=== PATIENT | male | born 1975 | race African-American/Black ===

== ENCOUNTER 2017-11-23 20:32 | Inpatient (IN) | payer MEDICARE, MEDICAID ==
[~2017-11-23] VITALS: Ht 170.2 cm; Wt 75.3 kg
[~2017-11-23 20:32] MED LIST: RIVA10TA PO
[2017-11-23] MEDS ORDERED: HYDROCODONE/ACETAMINOPHEN 5/325MG TABLET PO STA (21:02)
[2017-11-23] MEDS ORDERED: VANCOMYCIN 1 G PREMIX 200 ML IV ONE (21:15)
[2017-11-23] MEDS ORDERED: PIPERACILLIN/TAZ 3.375G PREMIX 50 ML IV ONE (21:15)
[2017-11-23] MEDS ORDERED: SODIUM CHLORIDE 0.9% 1000ML BAG (SEPSIS BOLUS) IV ONE (21:15)
[2017-11-23 22:49] LABS: BASOPHILS % 0.4 % (0.0-2.0); EOSINOPHILS % 2.1 % (0.0-5.0); HEMATOCRIT. 33.8 % (42.0-52.0); LYMPHOCYTES % 14.3 % (20.0-50.0); MEAN CORPUSCULAR HEMOGLOBIN 25.3 pg (28.0-32.0); MEAN CORPUSCULAR VOLUME 77.8 fL (80.0-94.0); MEAN PLATELET VOLUME 6.4 fl (7.4-10.4); MONOCYTES % 8.3 % (2.0-8.0); NEUTROPHILS % 74.9 % (40.0-76.0); PLATELET 589 x1000/uL (130-400); RED BLOOD CELL COUNT 4.34 mill/uL (4.7-6.1); RED CELL DISTRIBUTION WIDTH 19.5 % (11.6-14.6)
[2017-11-23 22:55] LABS: CHLORIDE 107 mEq/L (98-107)
[2017-11-23 22:57] LABS: CLARITY URINE CLEAR (CLEAR); COLOR URINE YELLOW (YELLOW); KETONES URINE NEGATIVE (NEGATIVE); LEUKOCYTE ESTERASE URINE 2+ (NEGATIVE); NITRITE URINE NEGATIVE (NEGATIVE); OCCULT BLOOD URINE 2+ (NEGATIVE); PH URINE 6.5 (4.5-8.0); PROTEIN URINE NEGATIVE (NEGATIVE); SPECIFIC GRAVITY URINE 1.012 (1.005-1.030); UROBILINOGEN URINE 0.2 E.U./dL (0.2-1.0)
[2017-11-23 22:58] LABS: INR 1.1; PROTHROMBIN TIME 10.9 sec (9.4-11.6)
[2017-11-23 22:59] LABS: ETHANOL BLOOD < 10 mg/dL
[2017-11-23 23:06] LABS: *BARBITURATES SCREEN URINE NEGATIVE (NEGATIVE); *BENZODIAZEPINES SCREEN URINE NEGATIVE (NEGATIVE)
[2017-11-23 23:07] LABS: *AMPHETAMINES SCREEN URINE NEGATIVE (NEGATIVE); *COCAINE SCREEN URINE NEGATIVE (NEGATIVE); CANNABINOID URINE SCREEN PRESUMTIVE POSITIVE (NEGATIVE); METHADONE URINE SCREEN NEGATIVE (NEGATIVE); OPIATES URINE SCREEN NEGATIVE (NEGATIVE); PHENCYCLIDINE URINE SCREEN NEGATIVE (NEGATIVE)
[2017-11-23] MEDS ORDERED: DEXT 5%/0.45% NACL 1000ML 1,000 ML IV SCH (23:25)
[2017-11-23] MEDS ORDERED: ONDANSETRON HCL 4MG/2ML VIAL IV PRN (23:30)
[2017-11-23] MEDS ORDERED: LORAZEPAM 2MG/ML CPJ IV PRN (23:30)
[2017-11-23] MEDS ORDERED: ACETAMINOPHEN 650MG/20.3ML UDC GT PRN (23:30)
[2017-11-23] MEDS ORDERED: CLONIDINE 0.1MG TABLET PO PRN (23:30)
[2017-11-24] VITALS: BP 115/70
[2017-11-24] MEDS: MORPHINE SULFATE 4 MG/ML CPJ (NOT FOR IM USE) IV PRN ×6 (00:29→21:56)
[2017-11-24] MEDS ORDERED: ONDANSETRON 4MG ODT PO PRN (00:30)
[2017-11-24 04:00] VITALS: BP 112/68
[2017-11-24 08:00] VITALS: BP 120/67
[2017-11-24] MEDS: DIPHENHYDRAMINE 50MG/ML VIAL IV PRN ×3 (08:12→21:18)
[2017-11-24] MEDS: VANCOMYCIN 1 G PREMIX 200 ML IV SCH ×4 (08:12→23:54)
[2017-11-24 08:52] LABS: CHLORIDE 106 mEq/L (98-107)
[2017-11-24 08:58] LABS: PHOSPHORUS 2.9 mg/dL (2.5-4.9)
[2017-11-24] MEDS ORDERED: ENOXAPARIN 40MG/0.4ML SYR SUBCUT SCH (09:00)
[2017-11-24 09:01] LABS: BASOPHILS % 0.4 % (0.0-2.0); EOSINOPHILS % 3.1 % (0.0-5.0); HEMATOCRIT. 33.7 % (42.0-52.0); HEMOGLOBIN. 11.1 g/dL (14.0-18.0); LYMPHOCYTES % 22.4 % (20.0-50.0); MEAN CORPUSCULAR HEMOGLOBIN 25.6 pg (28.0-32.0); MEAN PLATELET VOLUME 6.3 fl (7.4-10.4); MONOCYTES % 9.5 % (2.0-8.0); NEUTROPHILS % 64.6 % (40.0-76.0); PLATELET 608 x1000/uL (130-400); RED BLOOD CELL COUNT 4.32 mill/uL (4.7-6.1); RED CELL DISTRIBUTION WIDTH 19.4 % (11.6-14.6)
[2017-11-24 12:00] VITALS: BP 120/86
[2017-11-24 16:00] VITALS: BP 115/67
[2017-11-24] MEDS ORDERED: HYDROCODONE/ACETAMINOPHEN 5/325MG TABLET PO PRN (16:30)
[2017-11-24] MEDS ORDERED: RIVAROXABAN 20 MG TABLET PO SCH (17:00)
[2017-11-24 20:00] VITALS: BP 114/84
[2017-11-24] MEDS: RISPERIDONE 1MG TABLET PO SCH ×2 (21:00→21:18)
[2017-11-25] VITALS: BP 150/98
[2017-11-25] MEDS: MORPHINE SULFATE 4 MG/ML CPJ (NOT FOR IM USE) IV PRN ×3 (01:56→09:56)
[2017-11-25] MEDS: DIPHENHYDRAMINE 50MG/ML VIAL IV PRN (03:53)
[2017-11-25 04:00] VITALS: BP 142/76
[2017-11-25 07:43] VITALS: BP 109/73
[2017-11-25] MEDS: VANCOMYCIN 1 G PREMIX 200 ML IV SCH (08:00)
[2017-11-25] MEDS: RISPERIDONE 1MG TABLET PO SCH (08:41)
[2017-11-25 10:28] LABS: CHLORIDE 103 mEq/L (98-107)
[2017-11-25 10:37] LABS: VANCOMYCIN TROUGH 7.3 ug/mL (5.0-10.0)
[2017-11-25] MEDS ORDERED: CEFEPIME 1,000 MG in DEXTROSE 5% WATER 50 ML IV SCH (11:00)
[2017-11-25 11:21] VITALS: BP 110/76
== END 2017-11-25 11:35 | disposition home or self-care (01) | DRG 570 ==
LOC: ER 20:55 → 6EST 22:06 → ENRESERV 22:41
PROVIDERS: ADMIT Internal Medicine Nephrology; ATTEND Internal Medicine Nephrology
PROC: 0JBR0ZZ Excision of Left Foot Subcutaneous Tissue and Fascia, Open Approach (ICD-10-PCS; principal; 2017-11-24)
DX: L97.429 Non-pressure chronic ulcer of left heel and midfoot with unspecified severity (principal); E43 Unspecified severe protein-calorie malnutrition; G82.20 Paraplegia, unspecified; N39.0 Urinary tract infection, site not specified; L03.116 Cellulitis of left lower limb; L97.419 Non-pressure chronic ulcer of right heel and midfoot with unspecified severity; L89.154 Pressure ulcer of sacral region, stage 4; F12.90 Cannabis use, unspecified, uncomplicated; F17.210 Nicotine dependence, cigarettes, uncomplicated; G89.29 Other chronic pain; D63.8 Anemia in other chronic diseases classified elsewhere; Z60.2 Problems related to living alone; Z59.0 Homelessness; Z79.01 Long term (current) use of anticoagulants; Z91.19 Patient's noncompliance with other medical treatment and regimen; Z86.718 Personal history of other venous thrombosis and embolism; Z93.3 Colostomy status; W34.00XS Accidental discharge from unspecified firearms or gun, sequela; Z88.8 Allergy status to other drugs, medicaments and biological substances; Z79.899 Other long term (current) drug therapy; Z68.26 Body mass index [BMI] 26.0-26.9, adult
CPT/HCPCS: 36415; 80048; 80053; 80202; 80305; 81003; 82962; 83605; 83735; 84100; 85025; 85610; 87040; 87070; 87086; 87186; 87205; 93971; 96365; 96366; 96368; 99285; C1893; G0482; J0692; J1200; J1650; J2270; J2543; J3370; J7030; J7060; Q0162

== ENCOUNTER 2017-12-14 20:02 | Emergency (ER) | payer MEDICARE, MEDICAID ==
[~2017-12-14] VITALS: Ht 170.2 cm; Wt 69.0 kg
[2017-12-14] MEDS ORDERED: MORPHINE SULFATE 4 MG/ML CPJ (NOT FOR IM USE) IV STA (21:40)
[2017-12-14] MEDS ORDERED: ONDANSETRON HCL 4MG/2ML VIAL IV STA (21:40)
[2017-12-14] MEDS ORDERED: SODIUM CHLORIDE 0.9% 1000ML BAG (SEPSIS BOLUS) IV ONE (21:45)
[2017-12-14] MEDS ORDERED: VANCOMYCIN 1 G PREMIX 200 ML IV ONE (21:45)
[2017-12-14] MEDS ORDERED: PIPERACILLIN/TAZ 3.375G PREMIX 50 ML IV ONE (21:45)
[2017-12-15 00:45] LABS: BASOPHILS % 0.5 % (0.0-2.0); HEMATOCRIT. 34.2 % (42.0-52.0); LYMPHOCYTES % 19.5 % (20.0-50.0); MEAN CORPUSCULAR HEMOGLOBIN 25.5 pg (28.0-32.0); MEAN CORPUSCULAR VOLUME 78.9 fL (80.0-94.0); MEAN PLATELET VOLUME 6.8 fl (7.4-10.4); PLATELET 501 x1000/uL (130-400); RED BLOOD CELL COUNT 4.33 mill/uL (4.7-6.1); RED CELL DISTRIBUTION WIDTH 18.8 % (11.6-14.6)
[2017-12-15 01:08] LABS: CHLORIDE 110 mEq/L (98-107)
[2017-12-15 01:22] LABS: INR 1.1; PROTHROMBIN TIME 10.8 sec (9.1-11.1)
[2017-12-15] MEDS ORDERED: SODIUM CHLORIDE 0.9% 1,000 ML IV SCH (02:08)
[2017-12-15] MEDS ORDERED: HYDROCODONE/ACETAMINOPHEN 5/325MG TABLET PO ONE (03:00)
[2017-12-15 07:31] LABS: CLARITY URINE CLEAR (CLEAR); COLOR URINE YELLOW (YELLOW); KETONES URINE NEGATIVE (NEGATIVE); LEUKOCYTE ESTERASE URINE 1+ (NEGATIVE); NITRITE URINE NEGATIVE (NEGATIVE); OCCULT BLOOD URINE NEGATIVE (NEGATIVE); PH URINE 7.5 (4.5-8.0); PROTEIN URINE NEGATIVE (NEGATIVE); SPECIFIC GRAVITY URINE 1.015 (1.005-1.030); UROBILINOGEN URINE 0.2 E.U./dL (0.2-1.0)
[2017-12-15 08:00] VITALS: BP 108/62
[2017-12-15] MEDS ORDERED: LORAZEPAM 2MG/ML CPJ IV PRN (08:15)
== END 2017-12-15 10:10 | disposition left against medical advice (07) ==
LOC: ER 20:46 → EDBEDREQDT 12-15 02:32 → EDBEDREQ 12-15 02:32 → EDBEDREQSVC 12-15 02:32 → EDBEDREQTM 12-15 02:32 → ER 12-15 10:10 → CANBEDREQ 12-15 15:52
DX: L03.116 Cellulitis of left lower limb (principal); G82.20 Paraplegia, unspecified; R00.0 Tachycardia, unspecified; M86.9 Osteomyelitis, unspecified; Z86.718 Personal history of other venous thrombosis and embolism; Z79.01 Long term (current) use of anticoagulants; Z99.3 Dependence on wheelchair; Z93.3 Colostomy status; Z88.6 Allergy status to analgesic agent; T14.8XXS Other injury of unspecified body region, sequela; X93.XXXS Assault by handgun discharge, sequela
CPT/HCPCS: 36415; 71045; 80053; 81003; 83605; 83880; 84484; 85025; 85610; 87040; 87086; 93005; 93970; 96365; 96366; 96368; 96375; 99285; J2270; J2405; J2543; J3370; J7030

== ENCOUNTER 2017-12-15 18:27 | Emergency (ER) | payer MEDICARE, MEDICAID ==
[~2017-12-15] VITALS: Ht 167.6 cm; Wt 62.0 kg
[2017-12-15 18:40] VITALS: BP 0/0
== END 2017-12-15 18:59 | disposition left against medical advice (07) ==
LOC: ER 18:27
DX: Z53.21 Procedure and treatment not carried out due to patient leaving prior to being seen by health care provider (principal)

== ENCOUNTER 2018-02-01 02:31 | Emergency (ER) | payer MEDICARE, MEDICAID ==
[~2018-02-01] VITALS: Ht 157.5 cm; Wt 57.0 kg
[2018-02-01 02:33] VITALS: BP 118/78
== END 2018-02-01 07:40 | disposition left against medical advice (07) ==
LOC: ER 03:39
DX: M79.662 Pain in left lower leg (principal); Z53.21 Procedure and treatment not carried out due to patient leaving prior to being seen by health care provider

== ENCOUNTER 2018-02-01 09:11 | Inpatient (IN) | payer MEDICARE, MEDICAID ==
[~2018-02-01] VITALS: Ht 198.1 cm; Wt 76.2 kg
[2018-02-01] MEDS ORDERED: ONDANSETRON HCL 4MG/2ML INJ IV STA ×2 (11:07→16:54)
[2018-02-01] MEDS ORDERED: MORPHINE SULFATE 4 MG/ML CPJ (NOT FOR IM USE) IV STA ×2 (11:07→16:54)
[2018-02-01] MEDS ORDERED: PIPERACILLIN/TAZ 3.375G PREMIX 50 ML IV ONE (11:15)
[2018-02-01] MEDS ORDERED: SODIUM CHLORIDE 0.9% 1000ML BAG (SEPSIS BOLUS) IV ONE (11:15)
[2018-02-01] MEDS ORDERED: VANCOMYCIN 1 G PREMIX 200 ML IV ONE (11:15)
[2018-02-01] MEDS ORDERED: DIPHENHYDRAMINE 50MG/ML VIAL IV ONE ×3 (12:45→17:00)
[2018-02-01 13:04] LABS: CHLORIDE 110 mEq/L (98-107)
[2018-02-01 13:07] LABS: INR 1.1; PARTIAL THROMBOPLASTIN TIME 33.5 sec (23.4-31.0); PROTHROMBIN TIME 10.9 sec (9.1-11.1)
[2018-02-01 13:23] LABS: BASOPHILS % 0.5 % (0.0-2.0); EOSINOPHILS % 3.4 % (0.0-5.0); HEMOGLOBIN. 11.5 g/dL (14.0-18.0); LYMPHOCYTES % 11.7 % (20.0-50.0); MEAN CORPUSCULAR VOLUME 75.3 fL (80.0-94.0); MEAN PLATELET VOLUME 7.2 fl (7.4-10.4); MONOCYTES % 9.4 % (2.0-8.0); PLATELET 493 x1000/uL (130-400); RED BLOOD CELL COUNT 4.78 mill/uL (4.7-6.1); RED CELL DISTRIBUTION WIDTH 18.1 % (11.6-14.6)
[2018-02-01] MEDS ORDERED: ONDANSETRON HCL 4MG/2ML INJ IV ONE (13:45)
[2018-02-01] MEDS ORDERED: MORPHINE SULFATE 4 MG/ML CPJ (NOT FOR IM USE) IV ONE (13:45)
[2018-02-01] MEDS ORDERED: GUAIFENESIN 200MG/10ML SUGAR FREE UDC PO PRN (17:15)
[2018-02-01] MEDS ORDERED: ENOXAPARIN 80MG/0.8ML SYR SUBCUT ONE (17:15)
[2018-02-01] MEDS ORDERED: DOCUSATE SODIUM 100MG CAPSULE PO PRN (17:15)
[2018-02-01] MEDS ORDERED: KETOROLAC 15MG/ML VIAL IV PRN (17:15)
[2018-02-01] MEDS ORDERED: LORAZEPAM 2MG/ML CPJ IV ONE (17:15)
[2018-02-01] MEDS ORDERED: PIPERACILLIN/TAZ 3.375G PREMIX 50 ML IV SCH (17:15)
[2018-02-01] MEDS ORDERED: LORAZEPAM 0.5MG TABLET PO PRN (17:15)
[2018-02-01] MEDS ORDERED: VANCOMYCIN 1 G PREMIX 200 ML IV SCH (17:15)
[2018-02-01] MEDS ORDERED: IPRATROPIUM/ALBUTEROL 0.5-3(2.5)MG/3ML NEB INH PRN (17:15)
[2018-02-01] MEDS ORDERED: NA PHOS,M-B/NA PHOS,DI-BA ENEMA 118ML PR PRN (17:15)
[2018-02-01] MEDS ORDERED: ACETAMINOPHEN 325MG TABLET PO PRN (17:15)
[2018-02-01 18:22] LABS: ETHANOL BLOOD < 10 mg/dL
[2018-02-01 18:25] LABS: LDL CHOLESTEROL 51 mg/dL (5-100)
[2018-02-01 18:27] LABS: HDL CHOLESTEROL 46 mg/dL (40-59)
[2018-02-01] MEDS ORDERED: NITROGLYCERIN 0.4MG TABLET SL SL PRN (20:00)
[2018-02-01] MEDS ORDERED: TRAMADOL 50MG TABLET PO PRN (23:48)
[2018-02-01] MEDS ORDERED: ZOLPIDEM TARTRATE 5MG TABLET PO PRN (23:49)
[2018-02-01] MEDS ORDERED: ONDANSETRON HCL 4MG/2ML INJ IV PRN (23:50)
[2018-02-02] MEDS ORDERED: MVI, ADULT NO.1 10 ML, FOLIC ACID 1 MG, THIAMINE HCL 100 MG in SODIUM CHLORIDE 0.9% 1,0... IV SCH ×4
[2018-02-02] MEDS ORDERED: VANCOMYCIN 1 G PREMIX 200 ML IV SCH (01:00)
[2018-02-02] MEDS ORDERED: PIPERACILLIN/TAZ 3.375G PREMIX 50 ML IV SCH (02:00)
[2018-02-02 03:00] VITALS: BP 126/73
[2018-02-02] MEDS: MORPHINE SULFATE 4 MG/ML CPJ (NOT FOR IM USE) IV PRN ×2 (03:35→08:43)
[2018-02-02 03:41] VITALS: BP 126/73
[2018-02-02 08:00] VITALS: BP 128/76
[2018-02-02 08:43] VITALS: BP 126/80
[2018-02-02] MEDS ORDERED: ASCORBIC ACID 500 MG TABLET PO SCH (09:00)
[2018-02-02] MEDS ORDERED: ZINC SULFATE 220 MG ( 50 ) CAPSULE PO SCH (09:00)
[2018-02-02] MEDS ORDERED: FAMOTIDINE 20MG TABLET PO SCH (09:00)
[2018-02-02] MEDS ORDERED: ENOXAPARIN 40MG/0.4ML SYR SUBCUT SCH (09:00)
== END 2018-02-02 10:14 | disposition left against medical advice (07) | DRG 871 ==
LOC: ER 09:11 → 8WST 17:10 → ENRESERV 21:59
PROVIDERS: ADMIT Internal Medicine; ATTEND Internal Medicine
DX: A41.9 Sepsis, unspecified organism (principal); E43 Unspecified severe protein-calorie malnutrition; G82.20 Paraplegia, unspecified; N13.2 Hydronephrosis with renal and ureteral calculous obstruction; M86.8X6 Other osteomyelitis, lower leg; Z68.1 Body mass index [BMI] 19.9 or less, adult; D63.8 Anemia in other chronic diseases classified elsewhere; F12.90 Cannabis use, unspecified, uncomplicated; F17.210 Nicotine dependence, cigarettes, uncomplicated; Z90.49 Acquired absence of other specified parts of digestive tract; Z99.3 Dependence on wheelchair
CPT/HCPCS: 36415; 71045; 73620; 74176; 80053; 80061; 83036; 83605; 84484; 85025; 85610; 85730; 86850; 86900; 87040; 93005; 93970; 96365; 96366; 96375; 99285; G0482; J1200; J1650; J2060; J2270; J2405; J2543; J3370; J3411; J3490; J7030; J7040

== ENCOUNTER 2018-02-03 04:48 | Inpatient (IN) | payer MEDICARE, MEDICAID ==
[~2018-02-03] VITALS: Ht 152.4 cm; Wt 68.0 kg
[2018-02-03] MEDS ORDERED: MORPHINE SULFATE 4 MG/ML CPJ (NOT FOR IM USE) IV STA (06:41)
[2018-02-03] MEDS ORDERED: SODIUM CHLORIDE 0.9% 1,000 ML IV ONE (06:41)
[2018-02-03] MEDS ORDERED: ONDANSETRON HCL 4MG/2ML INJ IV STA (06:41)
[2018-02-03 07:25] LABS: BASOPHILS % 0.3 % (0.0-2.0); EOSINOPHILS % 4.4 % (0.0-5.0); HEMATOCRIT. 33.4 % (42.0-52.0); HEMOGLOBIN. 10.6 g/dL (14.0-18.0); MEAN CORPUSCULAR HEMOGLOBIN 23.8 pg (28.0-32.0); MEAN CORPUSCULAR VOLUME 75.1 fL (80.0-94.0); MEAN PLATELET VOLUME 6.4 fl (7.4-10.4); MONOCYTES % 7.8 % (2.0-8.0); NEUTROPHILS % 72.5 % (40.0-76.0); PLATELET 536 x1000/uL (130-400); RED BLOOD CELL COUNT 4.45 mill/uL (4.7-6.1)
[2018-02-03 07:30] LABS: CHLORIDE 109 mEq/L (98-107)
[2018-02-03 07:31] LABS: INR 1.1; PROTHROMBIN TIME 10.7 sec (9.1-11.1)
[2018-02-03 08:00] VITALS: BP 112/71
[2018-02-03 09:55] VITALS: BP 141/90
[2018-02-03] MEDS ORDERED: HYDROCODONE/ACETAMINOPHEN 5/325MG TABLET PO PRN (11:00)
[2018-02-03] MEDS ORDERED: CLONIDINE 0.1MG TABLET PO PRN (11:00)
[2018-02-03] MEDS: HYDROMORPHONE HCL/PF 2MG/ML CPJ IV PRN ×3 (11:11→19:48)
[2018-02-03] MEDS: ENOXAPARIN 40MG/0.4ML SYR SUBCUT SCH (12:00)
[2018-02-03] MEDS: AMLODIPINE 10MG TABLET PO SCH (12:00)
[2018-02-03] MEDS ORDERED: VANCOMYCIN 1250MG in DEXTROSE 5% WATER 250ML IV SCH (13:30)
[2018-02-03] MEDS: PIPERACILLIN/TAZ 3.375G PREMIX 50 ML IV SCH ×3 (14:57→22:00)
[2018-02-03] MEDS: ONDANSETRON HCL 4MG/2ML INJ IV PRN ×2 (15:04→19:48)
[2018-02-03] MEDS: DIPHENHYDRAMINE 50MG/ML VIAL IV PRN ×2 (15:25→19:54)
[2018-02-03] MEDS: LORAZEPAM 2MG/ML CPJ IV PRN (15:25)
[2018-02-03 20:00] VITALS: BP 120/76
[2018-02-04] VITALS: BP 106/57
[2018-02-04] MEDS: DIPHENHYDRAMINE 50MG/ML VIAL IV PRN ×2 (01:05→08:52)
[2018-02-04 01:14] VITALS: BP 106/57
[2018-02-04] MEDS: LORAZEPAM 2MG/ML CPJ IV PRN (01:14)
[2018-02-04] MEDS: PIPERACILLIN/TAZ 3.375G PREMIX 50 ML IV SCH (06:00)
[2018-02-04] MEDS: AMLODIPINE 10MG TABLET PO SCH (08:44)
[2018-02-04] MEDS: ENOXAPARIN 40MG/0.4ML SYR SUBCUT SCH (08:52)
[2018-02-04] MEDS: VANCOMYCIN 1 G PREMIX 200 ML IV SCH ×2 (08:52)
== END 2018-02-04 11:49 | disposition left against medical advice (07) | DRG 539 ==
LOC: ER 04:48 → 6EST 07:56 → EDBEDREQTM 08:05 → EDBEDREQ 08:05 → ENRESERV 08:15
PROVIDERS: ADMIT Hospitalist; ATTEND Hospitalist
DX: M86.8X6 Other osteomyelitis, lower leg (principal); E43 Unspecified severe protein-calorie malnutrition; F17.210 Nicotine dependence, cigarettes, uncomplicated; L89.159 Pressure ulcer of sacral region, unspecified stage; Z76.5 Malingerer [conscious simulation]; Z91.19 Patient's noncompliance with other medical treatment and regimen; Z99.3 Dependence on wheelchair; Z88.8 Allergy status to other drugs, medicaments and biological substances; Z53.21 Procedure and treatment not carried out due to patient leaving prior to being seen by health care provider
CPT/HCPCS: 36415; 80053; 83605; 85025; 85610; 87040; 96361; 96374; 96375; 99285; A6261; J1170; J1200; J2060; J2270; J2405; J2543; J3370; J7030; J7040; J7060

== ENCOUNTER 2018-02-05 06:36 | Emergency (ER) | payer MEDICARE, MEDICAID ==
[2018-02-05 08:13] VITALS: BP 130/80
== END 2018-02-05 08:14 | disposition home or self-care (01) ==
LOC: ER 06:36
DX: S91.302A Unspecified open wound, left foot, initial encounter (principal); F12.10 Cannabis abuse, uncomplicated; W34.09XA Accidental discharge from other specified firearms, initial encounter; Y93.89 Activity, other specified; Y92.89 Other specified places as the place of occurrence of the external cause; Y99.8 Other external cause status; Z88.5 Allergy status to narcotic agent; Z88.1 Allergy status to other antibiotic agents; Z76.5 Malingerer [conscious simulation]
CPT/HCPCS: 99283

== ENCOUNTER 2018-03-05 19:50 | Emergency (ER) | payer MEDICARE, MEDICAID ==
[~2018-03-05] VITALS: Ht 165.1 cm; Wt 59.0 kg
[2018-03-05 20:40] VITALS: BP 117/75
== END 2018-03-05 21:55 | disposition left against medical advice (07) ==
LOC: ER 19:50
DX: M86.9 Osteomyelitis, unspecified (principal); Z86.718 Personal history of other venous thrombosis and embolism; Z88.8 Allergy status to other drugs, medicaments and biological substances
CPT/HCPCS: 99283

== ENCOUNTER 2018-03-06 00:31 | Emergency (ER) | payer MEDICARE, MEDICAID ==
[~2018-03-06] VITALS: Ht 152.4 cm; Wt 59.0 kg
[2018-03-06] MEDS ORDERED: ONDANSETRON HCL 4MG/2ML INJ IV STA (01:29)
[2018-03-06] MEDS ORDERED: MORPHINE SULFATE 4 MG/ML CPJ (NOT FOR IM USE) IV STA (01:29)
[2018-03-06] MEDS ORDERED: VANCOMYCIN 1 G PREMIX 200 ML IV SCH (03:00)
[2018-03-06] MEDS ORDERED: PIPERACILLIN/TAZOBACTAM 3.375GM/50ML PREMIX IV ONE (03:00)
[2018-03-06] MEDS ORDERED: PIPERACILLIN/TAZ 3.375G PREMIX 50 ML IV NR (03:15)
[2018-03-06] MEDS ORDERED: ACETAMINOPHEN 325MG TABLET PO PRN (04:30)
[2018-03-06 04:33] LABS: CHLORIDE 109 mEq/L (98-107)
[2018-03-06 04:37] LABS: BASOPHILS % 0.3 % (0.0-2.0); EOSINOPHILS % 7.6 % (0.0-5.0); HEMATOCRIT. 32.3 % (42.0-52.0); HEMOGLOBIN. 10.3 g/dL (14.0-18.0); LYMPHOCYTES % 17.4 % (20.0-50.0); MEAN CORPUSCULAR HEMOGLOBIN 22.8 pg (28.0-32.0); MEAN CORPUSCULAR VOLUME 71.3 fL (80.0-94.0); MEAN PLATELET VOLUME 6.6 fl (7.4-10.4); MONOCYTES % 8.6 % (2.0-8.0); NEUTROPHILS % 66.1 % (40.0-76.0); PLATELET 430 x1000/uL (130-400); RED BLOOD CELL COUNT 4.53 mill/uL (4.7-6.1); RED CELL DISTRIBUTION WIDTH 18.8 % (11.6-14.6)
[2018-03-06 06:32] VITALS: BP 108/67
== END 2018-03-06 06:45 | disposition left against medical advice (07) ==
LOC: ER 00:31 → EDBEDREQ 03:28 → EDBEDREQTM 03:28 → ER 06:32 → CANRESERV 06:55 → ENRESERV 06:55 → ER 16:20 → CANBEDREQ 21:56
DX: L03.116 Cellulitis of left lower limb (principal); L03.115 Cellulitis of right lower limb; F17.200 Nicotine dependence, unspecified, uncomplicated; I10 Essential (primary) hypertension; Z88.5 Allergy status to narcotic agent; Z88.1 Allergy status to other antibiotic agents; Z86.718 Personal history of other venous thrombosis and embolism
CPT/HCPCS: 36415; 71045; 80053; 83605; 85025; 87040; 93005; 93970; 96365; 96375; 99285; J2270; J2405; J2543; J3370

== ENCOUNTER 2018-03-12 18:40 | Emergency (ER) | payer MEDICARE, MEDICAID ==
[~2018-03-12] VITALS: Ht 170.2 cm; Wt 65.0 kg
[2018-03-12] MEDS ORDERED: CEFEPIME 1,000 MG in DEXTROSE 5% WATER 50 ML IV STA (19:31)
[2018-03-12] MEDS ORDERED: VANCOMYCIN 1 G PREMIX 200 ML IV STA (19:31)
[2018-03-12] MEDS ORDERED: DIPHENHYDRAMINE 50MG/ML VIAL IV ONE (19:45)
[2018-03-12] MEDS ORDERED: MORPHINE SULFATE 4 MG/ML CPJ (NOT FOR IM USE) IV ONE (19:45)
[2018-03-12] MEDS ORDERED: SODIUM CHLORIDE 0.9% 1000ML BAG (SEPSIS BOLUS) IV ONE (19:45)
[2018-03-13 00:04] LABS: BASOPHILS % 0.5 % (0.0-2.0); EOSINOPHILS % 4.9 % (0.0-5.0); HEMOGLOBIN. 10.2 g/dL (14.0-18.0); LYMPHOCYTES % 16.4 % (20.0-50.0); MEAN CORPUSCULAR HEMOGLOBIN 21.7 pg (28.0-32.0); MEAN CORPUSCULAR VOLUME 70.6 fL (80.0-94.0); MEAN PLATELET VOLUME 6.8 fl (7.4-10.4); MONOCYTES % 6.7 % (2.0-8.0); NEUTROPHILS % 71.5 % (40.0-76.0); PLATELET 551 x1000/uL (130-400); RED BLOOD CELL COUNT 4.67 mill/uL (4.7-6.1); RED CELL DISTRIBUTION WIDTH 18.9 % (11.6-14.6)
[2018-03-13 00:09] LABS: INR 1.1; PROTHROMBIN TIME 10.8 sec (9.1-11.1)
[2018-03-13 00:15] LABS: CHLORIDE 108 mEq/L (98-107)
[2018-03-13 07:13] LABS: CLARITY URINE TURBID (CLEAR); COLOR URINE YELLOW (YELLOW); KETONES URINE NEGATIVE (NEGATIVE); LEUKOCYTE ESTERASE URINE 3+ (NEGATIVE); NITRITE URINE POSITIVE (NEGATIVE); OCCULT BLOOD URINE 2+ (NEGATIVE); PROTEIN URINE TRACE (NEGATIVE); SPECIFIC GRAVITY URINE 1.014 (1.005-1.030); UROBILINOGEN URINE 0.2 E.U./dL (0.2-1.0)
[2018-03-13 07:41] VITALS: BP 128/78
[2018-03-13 07:46] LABS: OPIATES URINE SCREEN PRESUMTIVE POSITIVE (NEGATIVE); PHENCYCLIDINE URINE SCREEN NEGATIVE (NEGATIVE)
[2018-03-13 07:55] LABS: *AMPHETAMINES SCREEN URINE NEGATIVE (NEGATIVE); *BARBITURATES SCREEN URINE NEGATIVE (NEGATIVE); *BENZODIAZEPINES SCREEN URINE NEGATIVE (NEGATIVE); *COCAINE SCREEN URINE NEGATIVE (NEGATIVE); CANNABINOID URINE SCREEN PRESUMTIVE POSITIVE (NEGATIVE); METHADONE URINE SCREEN NEGATIVE (NEGATIVE)
[2018-03-13] MEDS ORDERED: DEXT 5%/0.45% NACL 1000ML 1,000 ML IV SCH (09:06)
[2018-03-13] MEDS ORDERED: LORAZEPAM 2MG/ML CPJ IV PRN (09:15)
[2018-03-13] MEDS ORDERED: ONDANSETRON HCL 4MG/2ML INJ IV PRN (09:15)
[2018-03-13] MEDS ORDERED: NA PHOS,M-B/NA PHOS,DI-BA ENEMA 118ML PR PRN (09:15)
[2018-03-13] MEDS ORDERED: HYDROCODONE/ACETAMINOPHEN 5/325MG TABLET PO PRN (09:15)
[2018-03-13] MEDS ORDERED: DOCUSATE SODIUM 100MG CAPSULE PO PRN (09:15)
[2018-03-13] MEDS ORDERED: GUAIFENESIN 200MG/10ML SUGAR FREE UDC PO PRN (09:15)
[2018-03-13] MEDS ORDERED: CLONIDINE 0.1MG TABLET PO PRN (09:15)
[2018-03-13] MEDS ORDERED: MORPHINE SULFATE 2 MG/ML CPJ (NOT FOR IM USE) IV PRN (09:15)
[2018-03-13] MEDS ORDERED: LEVOFLOXACIN 500MG PREMIX 100 ML IV SCH (09:15)
[2018-03-13] MEDS ORDERED: ACETAMINOPHEN 325MG TABLET PO PRN (09:15)
[2018-03-14] MEDS ORDERED: AMLODIPINE 10MG TABLET PO SCH (09:00)
== END 2018-03-13 08:45 | disposition left against medical advice (07) ==
LOC: ER 19:07 → EDBEDREQ 03-13 01:08 → EDBEDREQTM 03-13 01:08 → ER 03-13 08:45 → CANBEDREQ 03-13 14:21
DX: L89.159 Pressure ulcer of sacral region, unspecified stage (principal); M86.8X6 Other osteomyelitis, lower leg; R00.0 Tachycardia, unspecified; R79.82 Elevated C-reactive protein (CRP); R70.0 Elevated erythrocyte sedimentation rate; D50.9 Iron deficiency anemia, unspecified; E88.09 Other disorders of plasma-protein metabolism, not elsewhere classified; D47.3 Essential (hemorrhagic) thrombocythemia; I10 Essential (primary) hypertension; Z88.5 Allergy status to narcotic agent; Z88.1 Allergy status to other antibiotic agents
CPT/HCPCS: 36415; 80053; 80305; 81003; 83605; 84145; 84484; 85025; 85610; 85651; 86140; 87040; 87086; 93005; 96365; 96366; 96368; 96375; 99285; J0692; J1200; J2270; J3370; J7030; J7060

== ENCOUNTER 2018-03-18 22:39 | Emergency (ER) | payer MEDICARE, MEDICAID ==
[~2018-03-18] VITALS: Ht 177.8 cm; Wt 75.0 kg
[2018-03-18 22:42] VITALS: BP 121/66
== END 2018-03-19 02:15 | disposition left against medical advice (07) ==
LOC: ER 22:58
DX: Z53.21 Procedure and treatment not carried out due to patient leaving prior to being seen by health care provider (principal)

== ENCOUNTER 2018-03-19 05:03 | Emergency (ER) | payer MEDICARE, MEDICAID ==
[~2018-03-19] VITALS: Ht 175.3 cm; Wt 68.2 kg
[2018-03-19] MEDS ORDERED: ACETAMINOPHEN 325MG TABLET PO STA (06:50)
[2018-03-19] MEDS ORDERED: SODIUM CHLORIDE 0.9% 1000ML BAG (SEPSIS BOLUS) IV ONE (07:00)
[2018-03-19 08:44] VITALS: BP 124/71
== END 2018-03-19 08:45 | disposition home or self-care (01) ==
LOC: ER 05:03 → CANBEDREQ 09:51
DX: G89.29 Other chronic pain (principal); M79.662 Pain in left lower leg; L89.159 Pressure ulcer of sacral region, unspecified stage; L97.529 Non-pressure chronic ulcer of other part of left foot with unspecified severity; M86.672 Other chronic osteomyelitis, left ankle and foot; I10 Essential (primary) hypertension; Z88.8 Allergy status to other drugs, medicaments and biological substances; Z86.718 Personal history of other venous thrombosis and embolism
CPT/HCPCS: 99283; J7030

== ENCOUNTER 2018-05-07 15:10 | Inpatient (IN) | payer MEDICARE, MEDICAID ==
[~2018-05-07] VITALS: Ht 170.2 cm; Wt 70.3 kg
[2018-05-07] MEDS ORDERED: SODIUM CHLORIDE 0.9% 1,000 ML IV ONE (17:45)
[2018-05-07] MEDS ORDERED: ONDANSETRON HCL 4MG/2ML INJ IV ONE ×2 (18:00→21:00)
[2018-05-07] MEDS ORDERED: MORPHINE SULFATE 4 MG/ML CPJ (NOT FOR IM USE) IV ONE ×2 (18:00→21:00)
[2018-05-07] MEDS ORDERED: PIPERACILLIN/TAZOBACTAM 3.375GM/50ML PREMIX IV ONE (18:00)
[2018-05-07] MEDS ORDERED: VANCOMYCIN 1 G PREMIX 200 ML IV SCH (18:00)
[2018-05-07 19:42] LABS: BASOPHILS % 0.2 % (0.0-2.0); EOSINOPHILS % 3.9 % (0.0-5.0); HEMATOCRIT. 31.3 % (42.0-52.0); HEMOGLOBIN. 9.8 g/dL (14.0-18.0); LYMPHOCYTES % 17.6 % (20.0-50.0); MEAN CORPUSCULAR HEMOGLOBIN 20.9 pg (28.0-32.0); MEAN CORPUSCULAR VOLUME 67.1 fL (80.0-94.0); MEAN PLATELET VOLUME 8.3 fl (7.4-10.4); MONOCYTES % 9.6 % (2.0-8.0); NEUTROPHILS % 68.7 % (40.0-76.0); PLATELET 323 x1000/uL (130-400); RED BLOOD CELL COUNT 4.67 mill/uL (4.7-6.1); RED CELL DISTRIBUTION WIDTH 22.4 % (11.6-14.6)
[2018-05-07 19:44] LABS: CHLORIDE 108 mEq/L (98-107); PROTHROMBIN TIME 10.2 sec (9.1-11.1)
[2018-05-07 20:07] LABS: PLATELET ESTIMATE NORMAL
[2018-05-07] MEDS ORDERED: ENOXAPARIN 60MG/0.6ML SYR SUBCUT ONE (22:30)
[2018-05-07] MEDS ORDERED: DIPHENHYDRAMINE 50MG/ML VIAL IV ONE (22:30)
[2018-05-07] MEDS ORDERED: ACETAMINOPHEN 650MG/20.3ML UDC GT PRN (22:45)
[2018-05-07] MEDS ORDERED: LORAZEPAM 0.5MG TABLET PO PRN (22:45)
[2018-05-07] MEDS ORDERED: IOHEXOL-350 100 ML BOTTLE ONE (22:54)
[2018-05-07 23:30] VITALS: BP 116/65
[2018-05-08] MEDS ORDERED: LORAZEPAM 2MG/ML CPJ IV PRN (00:42)
[2018-05-08] MEDS: HYDROMORPHONE HCL/PF 2MG/ML CPJ IV PRN ×3 (01:44→09:56)
[2018-05-08] MEDS: PIPERACILLIN/TAZ 3.375G PREMIX 50 ML IV SCH ×2 (01:45→09:00)
[2018-05-08] MEDS ORDERED: VANCOMYCIN 1500MG in DEXTROSE 5% WATER 250ML IV SCH ×2 (03:00→22:00)
[2018-05-08 04:00] VITALS: BP 107/62
[2018-05-08] MEDS ORDERED: ENOXAPARIN 40MG/0.4ML SYR SUBCUT SCH (09:00)
[2018-05-08 09:56] VITALS: BP 110/62
[2018-05-08] MEDS ORDERED: ONDANSETRON HCL 4MG/2ML INJ IV PRN (13:15)
[2018-05-08] MEDS ORDERED: HYDROCODONE/ACETAMINOPHEN 5/325MG TABLET PO PRN (13:15)
[2018-05-08] MEDS ORDERED: SODIUM HYPOCHLORITE (0.25%) 480ML SOLUTION (HALF STRENGTH) TOP SCH (15:00)
[2018-05-08] MEDS ORDERED: PIPERACILLIN/TAZ 3.375G PREMIX 50 ML IV SCH (16:00)
[2018-05-08] MEDS ORDERED: RIVAROXABAN 20 MG TABLET PO SCH (17:00)
== END 2018-05-08 14:20 | disposition left against medical advice (07) | DRG 539 ==
LOC: ER 15:10 → EDBEDREQ 18:07 → 8WST 22:23 → EDBEDREQ 22:25 → ENRESERV 22:44
PROVIDERS: ADMIT Internal Medicine Nephrology; ATTEND Internal Medicine Nephrology
DX: M86.8X7 Other osteomyelitis, ankle and foot (principal); L89.154 Pressure ulcer of sacral region, stage 4; E43 Unspecified severe protein-calorie malnutrition; G82.20 Paraplegia, unspecified; L89.629 Pressure ulcer of left heel, unspecified stage; Z53.21 Procedure and treatment not carried out due to patient leaving prior to being seen by health care provider; D64.9 Anemia, unspecified; E87.8 Other disorders of electrolyte and fluid balance, not elsewhere classified; I10 Essential (primary) hypertension; Z79.01 Long term (current) use of anticoagulants; Z86.718 Personal history of other venous thrombosis and embolism; Z91.19 Patient's noncompliance with other medical treatment and regimen; Z93.3 Colostomy status; Z68.24 Body mass index [BMI] 24.0-24.9, adult; Z88.8 Allergy status to other drugs, medicaments and biological substances
CPT/HCPCS: 36415; 71275; 73630; 83605; 93970; 99285; J1170; J1200; J2270; J2405; J2543; J3370; J7030; J7040; J7060; Q9967

== ENCOUNTER 2018-05-17 12:10 | Emergency (ER) | payer MEDICARE, MEDICAID ==
[~2018-05-17] VITALS: Ht 177.8 cm; Wt 80.0 kg
[2018-05-17 12:21] VITALS: BP 123/82
== END 2018-05-17 18:33 | disposition left against medical advice (07) ==
LOC: ER 12:10
DX: M54.9 Dorsalgia, unspecified (principal); Z53.21 Procedure and treatment not carried out due to patient leaving prior to being seen by health care provider

== ENCOUNTER 2018-11-27 23:38 | Emergency (ER) | payer MEDICARE, MEDICAID ==
[~2018-11-27] VITALS: Ht 165.1 cm; Wt 58.0 kg
[2018-11-28] MEDS ORDERED: ONDANSETRON HCL 4MG/2ML INJ IV STA (09:52)
[2018-11-28] MEDS ORDERED: MORPHINE SULFATE 4 MG/ML CPJ (NOT FOR IM USE) IV STA (09:52)
[2018-11-28] MEDS ORDERED: DIPHENHYDRAMINE 25MG CAPSULE PO ONE (10:00)
[2018-11-28 10:16] VITALS: BP 114/78
[2018-11-28 11:28] LABS: BASOPHILS % 0.2 % (0.0-2.0); EOSINOPHILS % 3.1 % (0.0-5.0); HEMATOCRIT. 33.8 % (42.0-52.0); HEMOGLOBIN. 10.8 g/dL (14.0-18.0); LYMPHOCYTES % 14.4 % (20.0-50.0); MEAN CORPUSCULAR HEMOGLOBIN 21.5 pg (28.0-32.0); MEAN CORPUSCULAR VOLUME 67.4 fL (80.0-94.0); MEAN PLATELET VOLUME 8.1 fl (7.4-10.4); MONOCYTES % 13.6 % (2.0-8.0); NEUTROPHILS % 68.7 % (40.0-76.0); PLATELET 392 x1000/uL (130-400); RED BLOOD CELL COUNT 5.02 mill/uL (4.7-6.1); RED CELL DISTRIBUTION WIDTH 29.6 % (11.6-14.6)
[2018-11-28 11:36] LABS: CHLORIDE 105 mEq/L (98-107); INR 1.1; PROTHROMBIN TIME 11.7 sec (9.6-11.0)
[2018-11-28 12:15] LABS: PLATELET ESTIMATE NORMAL
== END 2018-11-28 13:05 | disposition left against medical advice (07) ==
LOC: ER 23:38 → CANBEDREQ 11-28 12:55 → ER 11-28 13:05
DX: M86.9 Osteomyelitis, unspecified (principal); F17.210 Nicotine dependence, cigarettes, uncomplicated; I10 Essential (primary) hypertension; Z71.6 Tobacco abuse counseling; Z88.8 Allergy status to other drugs, medicaments and biological substances; Z86.718 Personal history of other venous thrombosis and embolism
CPT/HCPCS: 36415; 71045; 73620; 80053; 83605; 84145; 84484; 85025; 85610; 87040; 96374; 96375; 99284; 99406; J2270; J2405; Q0163

== ENCOUNTER 2019-05-04 23:25 | Inpatient (IN) | payer MEDICARE, MEDICAID ==
[~2019-05-04] VITALS: Ht 153.9 cm; Wt 1.8 kg
[2019-05-05] MEDS ORDERED: MORPHINE SULFATE 4 MG/ML CPJ (NOT FOR IM USE) IV STA (06:35)
[2019-05-05] MEDS ORDERED: SODIUM CHLORIDE 0.9% 1000ML BAG (SEPSIS BOLUS) IV ONE (06:45)
[2019-05-05] MEDS ORDERED: VANCOMYCIN 1 G PREMIX 200 ML IV ONE (07:00)
[2019-05-05] MEDS ORDERED: PIPERACILLIN/TAZ 3.375G PREMIX 50 ML IV ONE (07:00)
[2019-05-05 07:15] LABS: HEMATOCRIT. 29.3 % (42.0-52.0); HEMOGLOBIN. 9.3 g/dL (14.0-18.0); MEAN CORPUSCULAR HEMOGLOBIN 19.8 pg (28.0-32.0); MEAN CORPUSCULAR VOLUME 62.4 fL (80.0-94.0); MEAN PLATELET VOLUME 6.1 fl (7.4-10.4); PLATELET 576 x1000/uL (130-400); RED BLOOD CELL COUNT 4.69 mill/uL (4.7-6.1); RED CELL DISTRIBUTION WIDTH 20.6 % (11.6-14.6)
[2019-05-05 07:16] LABS: CHLORIDE 107 mEq/L (98-107); INR 1.1; PROTHROMBIN TIME 11.6 sec (9.6-11.0)
[2019-05-05] MEDS ORDERED: DIPHENHYDRAMINE 50MG/ML VIAL IV ONE (08:15)
[2019-05-05] MEDS ORDERED: HYDROCODONE/ACETAMINOPHEN 5/325MG TABLET PO PRN (09:45)
[2019-05-05] MEDS ORDERED: ONDANSETRON HCL 4MG/2ML INJ IV PRN (09:45)
[2019-05-05] MEDS ORDERED: DIPHENHYDRAMINE 50MG/ML VIAL IV PRN (09:45)
[2019-05-05] MEDS ORDERED: IPRATROPIUM/ALBUTEROL 0.5-3(2.5)MG/3ML NEB HHN PRN (09:45)
[2019-05-05] MEDS ORDERED: ACETAMINOPHEN 325MG TABLET PO PRN (09:45)
[2019-05-05 10:34] LABS: PLATELET ESTIMATE INCREASED
[2019-05-05] MEDS: MORPHINE SULFATE 2 MG/ML CPJ (NOT FOR IM USE) IV PRN ×2 (17:17→23:08)
[2019-05-05] MEDS: DIPHENHYDRAMINE 50MG/ML VIAL IV PRN (17:17)
[2019-05-05] MEDS ORDERED: HALOPERIDOL LACTATE 5MG/ML VIAL IM PRN (22:59)
[2019-05-05] MEDS ORDERED: HALOPERIDOL LACTATE 5MG/ML VIAL IM NR (23:02)
[2019-05-06] VITALS: BP 101/59
[2019-05-06 00:30] VITALS: BP 0/0
[2019-05-06] MEDS: DIPHENHYDRAMINE 50MG/ML VIAL IV PRN ×4 (02:44→21:19)
[2019-05-06 04:00] VITALS: BP 91/57
[2019-05-06] MEDS: VANCOMYCIN 1250MG in DEXTROSE 5% WATER 250ML IV SCH ×3 (04:26→18:00)
[2019-05-06] MEDS: MORPHINE SULFATE 2 MG/ML CPJ (NOT FOR IM USE) IV PRN ×4 (07:08→22:41)
[2019-05-06 08:00] VITALS: BP 115/80
[2019-05-06 16:00] VITALS: BP 118/69
[2019-05-06 20:00] VITALS: BP 116/68
[2019-05-07] VITALS: BP 104/67
[2019-05-07] MEDS: VANCOMYCIN 1250MG in DEXTROSE 5% WATER 250ML IV SCH ×2 (01:50→10:38)
[2019-05-07] MEDS: MORPHINE SULFATE 2 MG/ML CPJ (NOT FOR IM USE) IV PRN ×4 (02:41→12:28)
[2019-05-07] MEDS: DIPHENHYDRAMINE 50MG/ML VIAL IV PRN ×2 (03:29→09:39)
[2019-05-07 05:04] VITALS: BP 124/69
[2019-05-07 06:50] LABS: BASOPHILS % 0.4 % (0.0-2.0); EOSINOPHILS % 5.3 % (0.0-5.0); HEMATOCRIT. 26.4 % (42.0-52.0); HEMOGLOBIN. 8.2 g/dL (14.0-18.0); LYMPHOCYTES % 17.2 % (20.0-50.0); MEAN CORPUSCULAR HEMOGLOBIN 19.3 pg (28.0-32.0); MEAN CORPUSCULAR VOLUME 61.9 fL (80.0-94.0); MEAN PLATELET VOLUME 6.4 fl (7.4-10.4); MONOCYTES % 12.8 % (2.0-8.0); NEUTROPHILS % 64.3 % (40.0-76.0); PLATELET 449 x1000/uL (130-400); RED BLOOD CELL COUNT 4.27 mill/uL (4.7-6.1); RED CELL DISTRIBUTION WIDTH 20.4 % (11.6-14.6)
[2019-05-07 06:54] LABS: CHLORIDE 105 mEq/L (98-107)
[2019-05-07 07:05] LABS: LDL CHOLESTEROL 47 mg/dL (5-100)
[2019-05-07 07:06] LABS: HDL CHOLESTEROL 32 mg/dL (40-59); TOTAL IRON BINDING CAPACITY 248 ug/dL (250-450)
[2019-05-07 08:10] LABS: PLATELET ESTIMATE INCREASED
[2019-05-07 13:26] VITALS: BP 124/69
== END 2019-05-07 14:25 | disposition home or self-care (01) | DRG 628 ==
LOC: ER 23:25 → 6EST 05-05 08:16 → EDBEDREQSVC 05-05 08:22 → EDBEDREQ 05-05 08:22 → EDBEDREQSVC 05-05 18:18 → ENRESERV 05-05 23:51 → 6EST 05-06 04:57
PROVIDERS: ADMIT Internal Medicine; ATTEND Internal Medicine
PROC: 0QBM0ZZ Excision of Left Tarsal, Open Approach (ICD-10-PCS; principal; 2019-05-05)
PROC: 0QBL0ZZ Excision of Right Tarsal, Open Approach (ICD-10-PCS; 2019-05-05)
DX: E11.69 Type 2 diabetes mellitus with other specified complication (principal); L89.624 Pressure ulcer of left heel, stage 4; L89.154 Pressure ulcer of sacral region, stage 4; G82.20 Paraplegia, unspecified; E46 Unspecified protein-calorie malnutrition; M86.8X7 Other osteomyelitis, ankle and foot; L97.518 Non-pressure chronic ulcer of other part of right foot with other specified severity; L97.528 Non-pressure chronic ulcer of other part of left foot with other specified severity; Z68.1 Body mass index [BMI] 19.9 or less, adult; E11.621 Type 2 diabetes mellitus with foot ulcer; L89.629 Pressure ulcer of left heel, unspecified stage; I10 Essential (primary) hypertension; D47.3 Essential (hemorrhagic) thrombocythemia; D50.9 Iron deficiency anemia, unspecified; D72.825 Bandemia; F12.90 Cannabis use, unspecified, uncomplicated; F17.210 Nicotine dependence, cigarettes, uncomplicated; F22 Delusional disorders; L89.619 Pressure ulcer of right heel, unspecified stage; G89.29 Other chronic pain; Z86.718 Personal history of other venous thrombosis and embolism; Z93.3 Colostomy status; Z99.3 Dependence on wheelchair; Z88.6 Allergy status to analgesic agent; Z93.6 Other artificial openings of urinary tract status; Z88.8 Allergy status to other drugs, medicaments and biological substances; Z87.828 Personal history of other (healed) physical injury and trauma
CPT/HCPCS: 36415; 73620; 80053; 80061; 82728; 83540; 83550; 83605; 83735; 84100; 84145; 84443; 84484; 85025; 85651; 86140; 96361; 96365; 96368; 96375; 96376; 99285; C1893; J1200; J1630; J2270; J2543; J3370; J7030; J7060

== ENCOUNTER 2019-05-09 22:42 | Emergency (ER) | payer MEDICARE, MEDICAID ==
[~2019-05-09] VITALS: Ht 167.6 cm; Wt 56.0 kg
[2019-05-10] MEDS ORDERED: LORAZEPAM 1MG TABLET PO ONE
[2019-05-10] MEDS ORDERED: HYDROCODONE/ACETAMINOPHEN 5/325MG TABLET PO ONE
[2019-05-10 00:57] VITALS: BP 136/74
== END 2019-05-10 00:59 | disposition home or self-care (01) ==
LOC: ER 22:42
DX: M79.662 Pain in left lower leg (principal); M79.661 Pain in right lower leg; G82.20 Paraplegia, unspecified; E11.9 Type 2 diabetes mellitus without complications; I10 Essential (primary) hypertension; F12.10 Cannabis abuse, uncomplicated; Z93.3 Colostomy status; Z99.3 Dependence on wheelchair; Z88.6 Allergy status to analgesic agent; X93.XXXS Assault by handgun discharge, sequela
CPT/HCPCS: 99283

== ENCOUNTER 2019-05-10 08:39 | Inpatient (IN) | payer MEDICARE, MEDICAID ==
[~2019-05-10] VITALS: Ht 165.1 cm; Wt 71.7 kg
[2019-05-11] MEDS ORDERED: KETOROLAC 30MG/ML VIAL IV STA (06:39)
[2019-05-11] MEDS ORDERED: DIPHENHYDRAMINE 50MG/ML VIAL IV ONE ×2 (08:00→14:00)
[2019-05-11 08:11] LABS: BASOPHILS % 0.8 % (0.0-2.0); EOSINOPHILS % 3.3 % (0.0-5.0); HEMATOCRIT. 29.7 % (42.0-52.0); HEMOGLOBIN. 9.2 g/dL (14.0-18.0); LYMPHOCYTES % 16.7 % (20.0-50.0); MEAN CORPUSCULAR HEMOGLOBIN 19.4 pg (28.0-32.0); MEAN CORPUSCULAR VOLUME 62.4 fL (80.0-94.0); MEAN PLATELET VOLUME 6.2 fl (7.4-10.4); MONOCYTES % 9.6 % (2.0-8.0); NEUTROPHILS % 69.6 % (40.0-76.0); PLATELET 584 x1000/uL (130-400); RED BLOOD CELL COUNT 4.76 mill/uL (4.7-6.1)
[2019-05-11 08:18] LABS: CHLORIDE 107 mEq/L (98-107)
[2019-05-11 08:42] LABS: PLATELET ESTIMATE INCREASED
[2019-05-11] MEDS ORDERED: MORPHINE SULFATE 4 MG/ML CPJ (NOT FOR IM USE) IV ONE (10:30)
[2019-05-11] MEDS ORDERED: OLANZAPINE 5MG TABLET PO STA (13:17)
[2019-05-11] MEDS ORDERED: VALPROATE SODIUM 250 MG in SODIUM CHLORIDE 0.9% 100 ML IV STA (13:17)
[2019-05-11 13:24] LABS: *AMPHETAMINES SCREEN URINE NEGATIVE (NEGATIVE); *BARBITURATES SCREEN URINE NEGATIVE (NEGATIVE); *BENZODIAZEPINES SCREEN URINE NEGATIVE (NEGATIVE); *COCAINE SCREEN URINE NEGATIVE (NEGATIVE); METHADONE URINE SCREEN NEGATIVE (NEGATIVE); OPIATES URINE SCREEN NEGATIVE (NEGATIVE)
[2019-05-11 13:25] LABS: CANNABINOID URINE SCREEN PRESUMTIVE POSITIVE (NEGATIVE); PHENCYCLIDINE URINE SCREEN NEGATIVE (NEGATIVE)
[2019-05-11] MEDS ORDERED: OLANZAPINE 10 MG/VIAL IM ONE (14:00)
[2019-05-11] MEDS: VANCOMYCIN 1 G PREMIX 200 ML IV SCH (14:09)
[2019-05-11] MEDS ORDERED: MORPHINE SULFATE 4 MG/ML CPJ (NOT FOR IM USE) IV STA (14:44)
[2019-05-11] MEDS ORDERED: LORAZEPAM 2MG/ML CPJ IV ONE (17:15)
[2019-05-12] MEDS ORDERED: ACETAMINOPHEN 650MG/20.3ML UDC PO ONE (01:15)
[2019-05-12] MEDS ORDERED: HYDROCODONE/ACETAMINOPHEN 5/325MG TABLET PO ONE (06:30)
[2019-05-12] MEDS ORDERED: OLANZAPINE 10 MG/VIAL IM ONE (06:30)
[2019-05-12] MEDS ORDERED: LORAZEPAM 2MG/ML CPJ IM ONE (07:45)
[2019-05-12] MEDS ORDERED: VANCOMYCIN 1 G PREMIX 200 ML IV SCH (07:45)
[2019-05-12] MEDS ORDERED: DIPHENHYDRAMINE 50MG/ML VIAL IV ONE ×3 (08:45→22:15)
[2019-05-12] MEDS: VANCOMYCIN 1 G PREMIX 200 ML IV SCH (13:15)
[2019-05-12] MEDS ORDERED: LORAZEPAM 2MG/ML CPJ IV ONE (16:30)
[2019-05-12] MEDS ORDERED: HALOPERIDOL LACTATE 5MG/ML VIAL IM ONE ×2 (20:00→22:30)
[2019-05-13] MEDS ORDERED: DIPHENHYDRAMINE 50MG/ML VIAL IV NR (09:30)
[2019-05-13] MEDS ORDERED: LORAZEPAM 2MG/ML CPJ IV NR (09:30)
[2019-05-13] MEDS ORDERED: ACETAMINOPHEN 325MG TABLET PO ONE (10:00)
[2019-05-13] MEDS ORDERED: VANCOMYCIN 1 G PREMIX 200 ML IV SCH (10:00)
[2019-05-13] MEDS ORDERED: OLANZAPINE 5MG TABLET PO SCH (10:00)
[2019-05-13] MEDS ORDERED: DIPHENHYDRAMINE 50MG/ML VIAL IM STA (10:12)
[2019-05-13] MEDS ORDERED: OLANZAPINE 10 MG/VIAL IM ONE (10:15)
[2019-05-13] MEDS ORDERED: VANCOMYCIN 1250MG in DEXTROSE 5% WATER 250ML IV NR (18:00)
[2019-05-13 20:00] VITALS: BP 110/75
[2019-05-13] MEDS: DIPHENHYDRAMINE 50MG/ML VIAL IM PRN (20:28)
[2019-05-13] MEDS: MORPHINE SULFATE 2 MG/ML CPJ (NOT FOR IM USE) IV PRN (20:46)
[2019-05-14] VITALS: BP 99/63
[2019-05-14] MEDS ORDERED: VANCOMYCIN 750 MG PREMIX 150 ML IV SCH (02:00)
[2019-05-14] MEDS: DIPHENHYDRAMINE 50MG/ML VIAL IM PRN ×3 (02:42→15:10)
[2019-05-14] MEDS: MORPHINE SULFATE 2 MG/ML CPJ (NOT FOR IM USE) IV PRN ×4 (02:43→16:45)
[2019-05-14] MEDS: OLANZAPINE 10 MG/VIAL IM SCH ×4 (06:00→18:00)
[2019-05-14 07:50] LABS: BASOPHILS % 0.5 % (0.0-2.0); EOSINOPHILS % 5.5 % (0.0-5.0); HEMATOCRIT. 30.5 % (42.0-52.0); HEMOGLOBIN. 9.4 g/dL (14.0-18.0); LYMPHOCYTES % 20.4 % (20.0-50.0); MEAN CORPUSCULAR HEMOGLOBIN 19.4 pg (28.0-32.0); MEAN CORPUSCULAR VOLUME 62.8 fL (80.0-94.0); MONOCYTES % 9.6 % (2.0-8.0); PLATELET 543 x1000/uL (130-400); RED BLOOD CELL COUNT 4.86 mill/uL (4.7-6.1); RED CELL DISTRIBUTION WIDTH 19.6 % (11.6-14.6)
[2019-05-14 08:11] LABS: CHLORIDE 105 mEq/L (98-107)
[2019-05-14] MEDS: VANCOMYCIN 1250MG in DEXTROSE 5% WATER 250ML IV SCH ×2 (11:18→17:00)
[2019-05-14 20:00] VITALS: BP 129/70
[2019-05-14 21:13] VITALS: BP 129/70
== END 2019-05-14 21:32 | disposition home or self-care (01) | DRG 593 ==
LOC: ER 08:39 → 7WST 05-13 07:56 → ENRESERV 05-13 12:34 → CANRESERV 05-13 13:36 → ENRESERV 05-13 13:40 → CANRESERV 05-13 13:40 → ENRESERV 05-13 13:44
PROVIDERS: ADMIT Internal Medicine; ATTEND Internal Medicine
DX: L97.429 Non-pressure chronic ulcer of left heel and midfoot with unspecified severity (principal); M86.172 Other acute osteomyelitis, left ankle and foot; G82.20 Paraplegia, unspecified; M86.171 Other acute osteomyelitis, right ankle and foot; L97.419 Non-pressure chronic ulcer of right heel and midfoot with unspecified severity; D50.9 Iron deficiency anemia, unspecified; F31.9 Bipolar disorder, unspecified; F20.9 Schizophrenia, unspecified; F29 Unspecified psychosis not due to a substance or known physiological condition; L89.159 Pressure ulcer of sacral region, unspecified stage; Z88.8 Allergy status to other drugs, medicaments and biological substances
CPT/HCPCS: 36415; 80053; 85025; 96365; 96366; 96367; 96375; 99285; C1893; J1200; J1630; J1885; J2060; J2270; J3370; J3490; J7040; J7050; J7060

== ENCOUNTER 2019-05-16 18:34 | Emergency (ER) | payer MEDICARE, MEDICAID ==
[~2019-05-16] VITALS: Ht 175.3 cm; Wt 61.0 kg
[2019-05-16 18:35] VITALS: BP 127/83
== END 2019-05-16 21:38 | disposition left against medical advice (07) ==
LOC: ER 18:34
DX: M54.5 Low back pain (principal); Z53.21 Procedure and treatment not carried out due to patient leaving prior to being seen by health care provider

== ENCOUNTER 2019-05-16 21:39 | Inpatient (IN) | payer MEDICARE, MEDICAID ==
[~2019-05-16] VITALS: Ht 162.6 cm; Wt 62.1 kg
[2019-05-16] MEDS ORDERED: SODIUM CHLORIDE 0.9% 1,000 ML IV NR (22:45)
[2019-05-16] MEDS ORDERED: OLANZAPINE 5MG TABLET ODT PO ONE (22:45)
[2019-05-16] MEDS ORDERED: OLANZAPINE 10 MG/VIAL IM ONE (23:00)
[2019-05-16 23:21] LABS: BASOPHILS % 0.7 % (0.0-2.0); EOSINOPHILS % 3.5 % (0.0-5.0); HEMATOCRIT. 32.7 % (42.0-52.0); HEMOGLOBIN. 10.1 g/dL (14.0-18.0); LYMPHOCYTES % 12.2 % (20.0-50.0); MEAN CORPUSCULAR HEMOGLOBIN 19.2 pg (28.0-32.0); MEAN CORPUSCULAR VOLUME 62.2 fL (80.0-94.0); MEAN PLATELET VOLUME 6.6 fl (7.4-10.4); MONOCYTES % 6.7 % (2.0-8.0); NEUTROPHILS % 76.9 % (40.0-76.0); PLATELET 567 x1000/uL (130-400); RED BLOOD CELL COUNT 5.26 mill/uL (4.7-6.1); RED CELL DISTRIBUTION WIDTH 20.3 % (11.6-14.6)
[2019-05-16 23:24] LABS: CHLORIDE 109 mEq/L (98-107)
[2019-05-16 23:25] LABS: INR 1.1
[2019-05-17] MEDS ORDERED: DIPHENHYDRAMINE 50MG/ML VIAL IM ONE
[2019-05-17] MEDS ORDERED: KETOROLAC 30MG/ML VIAL IV ONE
[2019-05-17] MEDS ORDERED: HALOPERIDOL LACTATE 5MG/ML VIAL IM ONE (00:45)
[2019-05-17] MEDS ORDERED: LORAZEPAM 2MG/ML CPJ IM ONE (00:45)
[2019-05-17] MEDS ORDERED: VANCOMYCIN 1 G PREMIX 200 ML IV SCH (02:15)
[2019-05-17] MEDS ORDERED: HYDROCODONE/ACETAMINOPHEN 5/325MG TABLET PO ONE (08:00)
[2019-05-17] MEDS ORDERED: LORAZEPAM 1MG TABLET PO ONE (08:00)
[2019-05-17] MEDS ORDERED: ENOXAPARIN 40MG/0.4ML SYR SUBCUT SCH (09:00)
[2019-05-17 09:15] VITALS: BP 0/0
[2019-05-17] MEDS ORDERED: VANCOMYCIN 1250MG in DEXTROSE 5% WATER 250ML IV SCH (11:00)
[2019-05-17] MEDS ORDERED: HALOPERIDOL LACTATE 5MG/ML VIAL IM NR (14:00)
[2019-05-17] MEDS ORDERED: LORAZEPAM 2MG/ML CPJ IM PRN (14:00)
== END 2019-05-17 17:06 | disposition left against medical advice (07) | DRG 540 ==
LOC: ER 21:39 → 6EST 05-17 02:42 → ENRESERV 05-17 08:17
PROVIDERS: ADMIT Internal Medicine; ATTEND Internal Medicine
DX: M86.8X7 Other osteomyelitis, ankle and foot (principal); G82.20 Paraplegia, unspecified; D50.9 Iron deficiency anemia, unspecified; Z53.29 Procedure and treatment not carried out because of patient's decision for other reasons; F22 Delusional disorders; I10 Essential (primary) hypertension; Z93.3 Colostomy status
CPT/HCPCS: 36415; 80053; 85025; 93970; 99285; J1200; J1630; J1885; J2060; J3370; J3490; J7060

== ENCOUNTER 2019-05-24 19:46 | Emergency (ER) | payer MEDICARE, MEDICAID ==
[~2019-05-24] VITALS: Ht 165.1 cm; Wt 63.0 kg
[2019-05-24 19:56] VITALS: BP 130/90
== END 2019-05-25 08:56 | disposition left against medical advice (07) ==
LOC: ER 19:46
DX: M86.60 Other chronic osteomyelitis, unspecified site (principal); I82.503 Chronic embolism and thrombosis of unspecified deep veins of lower extremity, bilateral; E11.9 Type 2 diabetes mellitus without complications; I10 Essential (primary) hypertension; F31.9 Bipolar disorder, unspecified; G82.20 Paraplegia, unspecified; F12.10 Cannabis abuse, uncomplicated; Z79.01 Long term (current) use of anticoagulants; Z87.828 Personal history of other (healed) physical injury and trauma; Z90.49 Acquired absence of other specified parts of digestive tract; Z99.3 Dependence on wheelchair; Z93.3 Colostomy status; Z88.6 Allergy status to analgesic agent
CPT/HCPCS: 99283

== ENCOUNTER 2019-06-17 05:25 | Inpatient (IN) | payer MEDICARE, MEDICAID ==
[~2019-06-17] VITALS: Ht 157.5 cm; Wt 65.8 kg
[2019-06-17] MEDS ORDERED: MORPHINE SULFATE 4 MG/ML CPJ (NOT FOR IM USE) IV STA (06:44)
[2019-06-17] MEDS ORDERED: VANCOMYCIN 1 G PREMIX 200 ML IV ONE (06:45)
[2019-06-17] MEDS ORDERED: DIPHENHYDRAMINE 50MG/ML VIAL IV ONE (06:45)
[2019-06-17 08:32] LABS: CHLORIDE 107 mEq/L (98-107)
[2019-06-17 08:42] LABS: BASOPHILS % 0.9 % (0.0-2.0); EOSINOPHILS % 5.4 % (0.0-5.0); HEMATOCRIT. 32.1 % (42.0-52.0); HEMOGLOBIN. 9.8 g/dL (14.0-18.0); LYMPHOCYTES % 18.5 % (20.0-50.0); MEAN CORPUSCULAR HEMOGLOBIN 18.6 pg (28.0-32.0); MEAN CORPUSCULAR VOLUME 61.1 fL (80.0-94.0); MEAN PLATELET VOLUME 6.4 fl (7.4-10.4); MONOCYTES % 8.4 % (2.0-8.0); NEUTROPHILS % 66.8 % (40.0-76.0); PLATELET 601 x1000/uL (130-400); RED BLOOD CELL COUNT 5.25 mill/uL (4.7-6.1); RED CELL DISTRIBUTION WIDTH 21.1 % (11.6-14.6)
[2019-06-17 08:46] LABS: PROTHROMBIN TIME 10.5 sec (9.6-11.0)
[2019-06-17] MEDS ORDERED: MORPHINE SULFATE 4 MG/ML CPJ (NOT FOR IM USE) IV ONE (09:30)
[2019-06-17 09:35] LABS: PLATELET ESTIMATE INCREASED
[2019-06-17] MEDS ORDERED: ACETAMINOPHEN 325MG TABLET PO PRN (10:30)
[2019-06-17] MEDS ORDERED: ONDANSETRON HCL 4MG/2ML INJ IV PRN (10:30)
[2019-06-17] MEDS ORDERED: CLONIDINE 0.1MG TABLET PO PRN (10:30)
[2019-06-17] MEDS ORDERED: IPRATROPIUM/ALBUTEROL 0.5-3(2.5)MG/3ML NEB HHN PRN (10:30)
[2019-06-17] MEDS ORDERED: ENOXAPARIN 40MG/0.4ML SYR SUBCUT SCH (13:00)
[2019-06-17 13:22] LABS: CLARITY URINE CLOUDY (CLEAR); COLOR URINE YELLOW (YELLOW); KETONES URINE NEGATIVE (NEGATIVE); LEUKOCYTE ESTERASE URINE 3+ (NEGATIVE); NITRITE URINE POSITIVE (NEGATIVE); OCCULT BLOOD URINE 2+ (NEGATIVE); PH URINE 6.5 (4.5-8.0); PROTEIN URINE 1+ (NEGATIVE); SPECIFIC GRAVITY URINE 1.013 (1.005-1.030); UROBILINOGEN URINE 0.2 E.U./dL (0.2-1.0)
[2019-06-17 17:12] VITALS: BP 133/80
== END 2019-06-17 17:15 | disposition left against medical advice (07) | DRG 638 ==
LOC: ER 05:25 → 6EST 09:19 → EDBEDREQ 09:27 → EDBEDREQTM 09:27 → EDBEDREQSVC 09:27 → ENRESERV 13:46
PROVIDERS: ADMIT Internal Medicine; ATTEND Internal Medicine
DX: E11.69 Type 2 diabetes mellitus with other specified complication (principal); M86.8X7 Other osteomyelitis, ankle and foot; G82.20 Paraplegia, unspecified; D50.9 Iron deficiency anemia, unspecified; I10 Essential (primary) hypertension; Z93.3 Colostomy status; Z88.8 Allergy status to other drugs, medicaments and biological substances; Z86.718 Personal history of other venous thrombosis and embolism
CPT/HCPCS: 36415; 71045; 80053; 81003; 83605; 83735; 84100; 84145; 84484; 85025; 87077; 87186; 93005; 93970; 99285; J1200; J2270; J3370

== ENCOUNTER 2019-07-04 11:03 | Emergency (ER) | payer MEDICARE, MEDICAID ==
[~2019-07-04] VITALS: Ht 162.6 cm; Wt 63.0 kg
[2019-07-04 11:39] VITALS: BP 112/70
[2019-07-04] MEDS ORDERED: DIPHENHYDRAMINE 25MG CAPSULE PO ONE (12:00)
[2019-07-04] MEDS ORDERED: ACETAMINOPHEN 325MG TABLET PO ONE (12:00)
== END 2019-07-04 16:08 | disposition home or self-care (01) ==
LOC: ER 11:10
DX: M86.662 Other chronic osteomyelitis, left tibia and fibula (principal); M86.661 Other chronic osteomyelitis, right tibia and fibula; K94.03 Colostomy malfunction; E11.9 Type 2 diabetes mellitus without complications; I10 Essential (primary) hypertension; Z86.718 Personal history of other venous thrombosis and embolism; Z88.5 Allergy status to narcotic agent; Z88.8 Allergy status to other drugs, medicaments and biological substances
CPT/HCPCS: 99283; Q0163

== ENCOUNTER 2019-07-08 22:19 | Emergency (ER) | payer MEDICARE, MEDICAID ==
[~2019-07-08] VITALS: Ht 165.1 cm; Wt 54.0 kg
[2019-07-09] MEDS ORDERED: DIPHENHYDRAMINE 50MG/ML VIAL IM ONE ×2 (00:30)
[2019-07-09] MEDS ORDERED: MORPHINE SULFATE 10 MG/ML CPJ IM ONE ×2 (00:30)
[2019-07-09 01:15] VITALS: BP 115/80
== END 2019-07-09 01:23 | disposition home or self-care (01) ==
LOC: ER 22:19
DX: G89.29 Other chronic pain (principal); R10.84 Generalized abdominal pain; R60.0 Localized edema; E11.9 Type 2 diabetes mellitus without complications; I10 Essential (primary) hypertension; Z49.01 Encounter for fitting and adjustment of extracorporeal dialysis catheter; Z93.3 Colostomy status; Z86.718 Personal history of other venous thrombosis and embolism
CPT/HCPCS: 96372; 99284; J1200; J2270

== ENCOUNTER 2019-07-20 20:47 | Emergency (ER) | payer MEDICARE, MEDICAID ==
[~2019-07-20] VITALS: Ht 165.1 cm; Wt 59.0 kg
[2019-07-20 20:55] VITALS: BP 140/86
[2019-07-20] MEDS ORDERED: ACETAMINOPHEN 500MG TABLET PO SCH (23:45)
== END 2019-07-21 00:08 | disposition home or self-care (01) ==
LOC: ER 20:47
DX: G82.20 Paraplegia, unspecified (principal); M86.60 Other chronic osteomyelitis, unspecified site; M79.10 Myalgia, unspecified site; Z99.3 Dependence on wheelchair; Z98.890 Other specified postprocedural states; Z93.3 Colostomy status; Z88.6 Allergy status to analgesic agent; Z88.8 Allergy status to other drugs, medicaments and biological substances
CPT/HCPCS: 99283

== ENCOUNTER 2019-08-03 21:01 | Inpatient (IN) | payer MEDICARE, MEDICAID ==
[~2019-08-03] VITALS: Ht 165.1 cm; Wt 64.0 kg
[2019-08-03] MEDS ORDERED: VANCOMYCIN 1 G PREMIX 200 ML IV STA (21:40)
[2019-08-03 23:16] LABS: BASOPHILS % 0.4 % (0.0-2.0); EOSINOPHILS % 3.5 % (0.0-5.0); HEMATOCRIT. 29.2 % (42.0-52.0); HEMOGLOBIN. 9.2 g/dL (14.0-18.0); LYMPHOCYTES % 21.5 % (20.0-50.0); MEAN CORPUSCULAR HEMOGLOBIN 23.2 pg (28.0-32.0); MEAN PLATELET VOLUME 5.5 fl (7.4-10.4); MONOCYTES % 12.8 % (2.0-8.0); NEUTROPHILS % 61.8 % (40.0-76.0); PLATELET 469 x1000/uL (130-400); RED BLOOD CELL COUNT 3.95 mill/uL (4.7-6.1); RED CELL DISTRIBUTION WIDTH 31.8 % (11.6-14.6)
[2019-08-03 23:21] LABS: CHLORIDE 107 mEq/L (98-107)
[2019-08-03 23:24] LABS: INR 1.1
[2019-08-03 23:48] LABS: PLATELET ESTIMATE NORMAL
[2019-08-04 09:37] VITALS: BP 107/68
[2019-08-04 09:50] VITALS: BP 121/94
[2019-08-04] MEDS ORDERED: CLONIDINE 0.1MG TABLET PO PRN (11:00)
[2019-08-04] MEDS ORDERED: VANCOMYCIN 1500MG in DEXTROSE 5% WATER 250ML IV NR (13:00)
[2019-08-04] MEDS ORDERED: VANCOMYCIN 1250MG in DEXTROSE 5% WATER 250ML IV SCH (13:00)
[2019-08-04] MEDS ORDERED: VANCOMYCIN 1,000 MG in DEXT 5% WATER 250 ML IV SCH (22:00)
== END 2019-08-04 15:43 | disposition left against medical advice (07) | DRG 602 ==
LOC: ER 21:01 → UNDOADMIN 23:34 → 6EST 23:34 → ENRESERV 23:44 → EDBEDREQ 08-04 03:35 → ENRESERV 08-04 07:26
PROVIDERS: ADMIT Internal Medicine; ATTEND Internal Medicine
DX: L03.116 Cellulitis of left lower limb (principal); E43 Unspecified severe protein-calorie malnutrition; M86.662 Other chronic osteomyelitis, left tibia and fibula; M86.661 Other chronic osteomyelitis, right tibia and fibula; D50.9 Iron deficiency anemia, unspecified; R73.9 Hyperglycemia, unspecified; Z88.8 Allergy status to other drugs, medicaments and biological substances; Z91.19 Patient's noncompliance with other medical treatment and regimen; Z71.6 Tobacco abuse counseling; Z53.29 Procedure and treatment not carried out because of patient's decision for other reasons; F17.200 Nicotine dependence, unspecified, uncomplicated
CPT/HCPCS: 36415; 80053; 83036; 85025; 96365; 99285; J3370; J7060

== ENCOUNTER 2019-08-14 00:09 | Emergency (ER) | payer MEDICARE, MEDICAID ==
[~2019-08-14] VITALS: Ht 152.4 cm; Wt 68.0 kg
[2019-08-14] MEDS ORDERED: KETOROLAC 30MG/ML VIAL IV ONE (05:00)
[2019-08-14] MEDS ORDERED: DIPHENHYDRAMINE 50MG/ML VIAL IV ONE (05:00)
[2019-08-14 06:30] VITALS: BP 115/73
[2019-08-14] MEDS ORDERED: VANCOMYCIN 1 G PREMIX 200 ML IV SCH (07:15)
[2019-08-14] MEDS ORDERED: KETOROLAC 30MG/ML VIAL IV PRN (09:30)
[2019-08-14] MEDS ORDERED: ACETAMINOPHEN 325MG TABLET PO PRN (09:30)
[2019-08-14 09:35] LABS: CLARITY URINE CLOUDY (CLEAR); COLOR URINE YELLOW (YELLOW); KETONES URINE NEGATIVE (NEGATIVE); LEUKOCYTE ESTERASE URINE 3+ (NEGATIVE); NITRITE URINE NEGATIVE (NEGATIVE); OCCULT BLOOD URINE 1+ (NEGATIVE); PH URINE 6.5 (4.5-8.0); PROTEIN URINE NEGATIVE (NEGATIVE); SPECIFIC GRAVITY URINE 1.012 (1.005-1.030)
[2019-08-14] MEDS ORDERED: HYDROCODONE/ACETAMINOPHEN 10/325MG TABLET PO PRN (09:45)
[2019-08-14 09:51] LABS: BASOPHILS % 0.5 % (0.0-2.0); EOSINOPHILS % 3.3 % (0.0-5.0); HEMATOCRIT. 24.6 % (42.0-52.0); HEMOGLOBIN. 7.6 g/dL (14.0-18.0); LYMPHOCYTES % 22.8 % (20.0-50.0); MEAN CORPUSCULAR HEMOGLOBIN 21.9 pg (28.0-32.0); MEAN CORPUSCULAR VOLUME 70.6 fL (80.0-94.0); NEUTROPHILS % 60.4 % (40.0-76.0); PLATELET 513 x1000/uL (130-400); RED BLOOD CELL COUNT 3.48 mill/uL (4.7-6.1); RED CELL DISTRIBUTION WIDTH 30.3 % (11.6-14.6)
[2019-08-14 10:00] LABS: CHLORIDE 108 mEq/L (98-107)
[2019-08-14] MEDS ORDERED: DIPHENHYDRAMINE 25MG CAPSULE PO PRN (10:00)
[2019-08-14 10:11] LABS: CHLORIDE 109 mEq/L (98-107)
[2019-08-14 10:12] LABS: PLATELET ESTIMATE INCREASED
== END 2019-08-14 10:12 | disposition left against medical advice (07) ==
LOC: ER 00:09 → CANBEDREQ 10:15
DX: M79.661 Pain in right lower leg (principal); M79.662 Pain in left lower leg; Z99.3 Dependence on wheelchair; Z93.3 Colostomy status; Z87.828 Personal history of other (healed) physical injury and trauma; Z88.6 Allergy status to analgesic agent; Z88.8 Allergy status to other drugs, medicaments and biological substances
CPT/HCPCS: 36415; 80048; 80053; 81003; 85025; 87086; 96374; 96375; 99284; J1200; J1885

== ENCOUNTER 2019-08-17 23:44 | Emergency (ER) | payer MEDICARE, MEDICAID ==
[~2019-08-17] VITALS: Ht 165.1 cm; Wt 68.0 kg
[2019-08-17 23:45] VITALS: BP 125/80
== END 2019-08-18 00:15 | disposition home or self-care (01) ==
LOC: EDUNIT# 23:44 → ER 08-18 00:07
DX: F91.8 Other conduct disorders (principal); M79.662 Pain in left lower leg; M79.661 Pain in right lower leg; M54.5 Low back pain; G82.20 Paraplegia, unspecified; Z87.828 Personal history of other (healed) physical injury and trauma; Z88.6 Allergy status to analgesic agent; Z88.8 Allergy status to other drugs, medicaments and biological substances
CPT/HCPCS: 99283

== ENCOUNTER 2019-08-18 03:19 | Emergency (ER) | payer MEDICARE, MEDICAID ==
[~2019-08-18] VITALS: Ht 165.1 cm; Wt 68.0 kg
== END 2019-08-18 03:56 | disposition home or self-care (01) ==
LOC: ER 03:19
DX: F91.8 Other conduct disorders (principal); M19.90 Unspecified osteoarthritis, unspecified site; Z93.3 Colostomy status; G82.20 Paraplegia, unspecified; Z99.3 Dependence on wheelchair; Z87.828 Personal history of other (healed) physical injury and trauma; Z88.6 Allergy status to analgesic agent; Z88.8 Allergy status to other drugs, medicaments and biological substances
CPT/HCPCS: 99281

== ENCOUNTER 2019-08-19 21:18 | Emergency (ER) | payer MEDICARE, MEDICAID ==
[~2019-08-19] VITALS: Ht 165.1 cm; Wt 73.0 kg
[2019-08-20] MEDS ORDERED: SODIUM CHLORIDE 0.9% 1000ML BAG (SEPSIS BOLUS) IV ONE
[2019-08-20] MEDS ORDERED: VANCOMYCIN 1 G PREMIX 200 ML IV ONE
[2019-08-20] MEDS ORDERED: PIPERACILLIN/TAZ 3.375G PREMIX 50 ML IV ONE
[2019-08-20] MEDS ORDERED: ONDANSETRON HCL 4MG/2ML INJ IV STA (00:15)
[2019-08-20] MEDS ORDERED: DIPHENHYDRAMINE 50MG/ML VIAL IV ONE ×2 (00:15→03:30)
[2019-08-20] MEDS ORDERED: MORPHINE SULFATE 4 MG/ML CPJ (NOT FOR IM USE) IV STA (00:15)
[2019-08-20 00:45] VITALS: BP 0/0
[2019-08-20 00:54] LABS: BASOPHILS % 0.7 % (0.0-2.0); EOSINOPHILS % 1.4 % (0.0-5.0); HEMATOCRIT. 25.6 % (42.0-52.0); HEMOGLOBIN. 8.1 g/dL (14.0-18.0); LYMPHOCYTES % 13.1 % (20.0-50.0); MEAN CORPUSCULAR HEMOGLOBIN 21.9 pg (28.0-32.0); MEAN CORPUSCULAR VOLUME 69.2 fL (80.0-94.0); MEAN PLATELET VOLUME 6.1 fl (7.4-10.4); MONOCYTES % 11.4 % (2.0-8.0); NEUTROPHILS % 73.4 % (40.0-76.0); PLATELET 573 x1000/uL (130-400); RED BLOOD CELL COUNT 3.71 mill/uL (4.7-6.1); RED CELL DISTRIBUTION WIDTH 29.2 % (11.6-14.6)
[2019-08-20 01:01] LABS: CHLORIDE 107 mEq/L (98-107)
[2019-08-20 01:03] LABS: PLATELET ESTIMATE INCREASED
[2019-08-20 01:57] LABS: INR 1.1; PARTIAL THROMBOPLASTIN TIME 28.8 sec (23.4-31.0); PROTHROMBIN TIME 11.4 sec (9.6-11.0)
[2019-08-20] MEDS ORDERED: MORPHINE SULFATE 4 MG/ML CPJ (NOT FOR IM USE) IV ONE (03:30)
[2019-08-20] MEDS ORDERED: ONDANSETRON HCL 4MG/2ML INJ IV ONE (03:30)
== END 2019-08-20 06:59 | disposition left against medical advice (07) ==
LOC: ER 21:18 → EDBEDREQ 08-20 05:37 → ER 08-20 06:59 → CANRESERV 08-20 07:32 → ENRESERV 08-20 07:32 → CANBEDREQ 08-20 08:06
DX: L97.529 Non-pressure chronic ulcer of other part of left foot with unspecified severity (principal); L08.9 Local infection of the skin and subcutaneous tissue, unspecified; R00.0 Tachycardia, unspecified; G82.20 Paraplegia, unspecified; D64.9 Anemia, unspecified; M86.60 Other chronic osteomyelitis, unspecified site; Z99.3 Dependence on wheelchair; Z87.828 Personal history of other (healed) physical injury and trauma; Z88.6 Allergy status to analgesic agent; Z88.8 Allergy status to other drugs, medicaments and biological substances
CPT/HCPCS: 36415; 80053; 83605; 83880; 84145; 84484; 85025; 85610; 85730; 87040; 96374; 96375; 99284; J1200; J2270; J2405; J2543; J7030

== ENCOUNTER 2019-08-22 22:56 | Emergency (ER) | payer MEDICARE, MEDICAID ==
[~2019-08-22] VITALS: Ht 167.6 cm; Wt 54.0 kg
[2019-08-22 22:59] VITALS: BP 130/80
== END 2019-08-23 03:13 | disposition home or self-care (01) ==
LOC: ER 22:56
DX: L97.529 Non-pressure chronic ulcer of other part of left foot with unspecified severity (principal); L08.9 Local infection of the skin and subcutaneous tissue, unspecified; Z53.29 Procedure and treatment not carried out because of patient's decision for other reasons; Z93.3 Colostomy status; Z88.6 Allergy status to analgesic agent; Z88.8 Allergy status to other drugs, medicaments and biological substances
CPT/HCPCS: 99283

== ENCOUNTER 2019-09-13 14:59 | Emergency (ER) | payer MEDICARE, MEDICAID ==
[~2019-09-13] VITALS: Ht 165.1 cm; Wt 50.0 kg
[2019-09-13 17:39] LABS: CHLORIDE 108 mEq/L (98-107)
[2019-09-13 17:49] LABS: HEMATOCRIT. 28.1 % (42.0-52.0); HEMOGLOBIN. 8.7 g/dL (14.0-18.0); MEAN CORPUSCULAR HEMOGLOBIN 20.5 pg (28.0-32.0); MEAN CORPUSCULAR VOLUME 66.2 fL (80.0-94.0); PLATELET 534 x1000/uL (130-400); RED BLOOD CELL COUNT 4.25 mill/uL (4.7-6.1); RED CELL DISTRIBUTION WIDTH 27.3 % (11.6-14.6)
[2019-09-13 18:12] LABS: PLATELET ESTIMATE INCREASED
[2019-09-13] MEDS ORDERED: ACETAMINOPHEN 325MG TABLET PO ONE (18:30)
[2019-09-13] MEDS ORDERED: PIPERACILLIN/TAZ 3.375G PREMIX 50 ML IV ONE (18:30)
[2019-09-13] MEDS ORDERED: VANCOMYCIN 1 G PREMIX 200 ML IV ONE (18:30)
[2019-09-13] MEDS ORDERED: VANCOMYCIN 1,000 MG in DEXT 5% WATER 250 ML IV SCH (19:00)
[2019-09-13] MEDS ORDERED: PIPERACILLIN/TAZOBACTAM 3.375 G in DEXT 5% WATER 100 ML IV SCH (19:00)
[2019-09-13] MEDS ORDERED: ONDANSETRON HCL 4MG/2ML INJ IV PRN (19:30)
[2019-09-13] MEDS ORDERED: ACETAMINOPHEN 325MG TABLET PO PRN (19:30)
[2019-09-13] MEDS: GABAPENTIN 300MG CAPSULE PO SCH (21:52)
[2019-09-13] MEDS: DIPHENHYDRAMINE 50MG/ML VIAL IV PRN (21:53)
[2019-09-14] MEDS: DIPHENHYDRAMINE 50MG/ML VIAL IV PRN (04:46)
[2019-09-14] MEDS: GABAPENTIN 300MG CAPSULE PO SCH (08:27)
[2019-09-14] MEDS ORDERED: PIPERACILLIN/TAZ 3.375G PREMIX 50 ML IV SCH (10:15)
[2019-09-14] MEDS ORDERED: HEPARIN 5000 UNITS/ML VIAL SUBCUT SCH (10:30)
[2019-09-14 11:15] VITALS: BP 125/82
[2019-09-14] MEDS ORDERED: DIPHENHYDRAMINE 50MG CAPSULE PO PRN (13:30)
[2019-09-14] MEDS ORDERED: PIPERACILLIN/TAZOBACTAM 3.375 G in DEXTROSE 5% WATER 50 ML IV SCH (16:00)
== END 2019-09-14 11:39 | disposition left against medical advice (07) ==
LOC: ER 14:59 → EDBEDREQTM 19:31 → EDBEDREQ 19:31 → ER 09-14 11:39 → CANBEDREQ 09-14 12:17
DX: L97.828 Non-pressure chronic ulcer of other part of left lower leg with other specified severity (principal); L08.9 Local infection of the skin and subcutaneous tissue, unspecified; M86.172 Other acute osteomyelitis, left ankle and foot; G89.29 Other chronic pain; I10 Essential (primary) hypertension; G40.909 Epilepsy, unspecified, not intractable, without status epilepticus; F99 Mental disorder, not otherwise specified; Z76.5 Malingerer [conscious simulation]; Z86.11 Personal history of tuberculosis; Z93.3 Colostomy status; Z88.6 Allergy status to analgesic agent; Z88.8 Allergy status to other drugs, medicaments and biological substances
CPT/HCPCS: 36415; 80053; 85025; 87040; 96365; 96366; 96367; 96375; 99285; J1200; J1644; J2543; J3370; J7060

== ENCOUNTER 2019-09-28 20:30 | Emergency (ER) | payer MEDICARE, MEDICAID ==
[~2019-09-28] VITALS: Ht 162.6 cm; Wt 79.0 kg
[2019-09-28 21:46] VITALS: BP 111/74
[2019-09-28] MEDS ORDERED: VANCOMYCIN 1 G PREMIX 200 ML IV ONE (22:45)
[2019-09-28] MEDS ORDERED: SODIUM CHLORIDE 0.9% 1000ML BAG (SEPSIS BOLUS) IV ONE (22:45)
[2019-09-28] MEDS ORDERED: PIPERACILLIN/TAZ 3.375G PREMIX 50 ML IV ONE (22:45)
[2019-09-29 00:12] LABS: CHLORIDE 106 mEq/L (98-107)
[2019-09-29 00:14] LABS: BASOPHILS % 0.4 % (0.0-2.0); EOSINOPHILS % 0.9 % (0.0-5.0); HEMATOCRIT. 24.3 % (42.0-52.0); HEMOGLOBIN. 7.8 g/dL (14.0-18.0); LYMPHOCYTES % 11.3 % (20.0-50.0); MEAN CORPUSCULAR HEMOGLOBIN 20.9 pg (28.0-32.0); MEAN CORPUSCULAR VOLUME 65.3 fL (80.0-94.0); MEAN PLATELET VOLUME 5.8 fl (7.4-10.4); MONOCYTES % 11.3 % (2.0-8.0); NEUTROPHILS % 76.1 % (40.0-76.0); PLATELET 543 x1000/uL (130-400); RED BLOOD CELL COUNT 3.72 mill/uL (4.7-6.1)
[2019-09-29 00:16] LABS: ETHANOL BLOOD < 10 mg/dL; PLATELET ESTIMATE NORMAL
[2019-09-29 00:40] LABS: INR 1.1; PROTHROMBIN TIME 11.9 sec (9.6-11.0)
== END 2019-09-29 00:56 | disposition home or self-care (01) ==
LOC: ER 20:30 → CANBEDREQ 09-29 08:18
DX: G89.29 Other chronic pain (principal); M79.605 Pain in left leg; F91.8 Other conduct disorders; M86.60 Other chronic osteomyelitis, unspecified site; R00.0 Tachycardia, unspecified; E11.9 Type 2 diabetes mellitus without complications; I10 Essential (primary) hypertension; G82.20 Paraplegia, unspecified; Z88.8 Allergy status to other drugs, medicaments and biological substances
CPT/HCPCS: 36415; 80053; 80320; 83880; 84145; 84484; 85025; 85384; 85610; 87040; 96365; 99284; J2543; J7030; J3370; G0480

== ENCOUNTER 2019-11-26 14:42 | Inpatient (IN) | payer MEDICARE, MEDICAID ==
[~2019-11-26] VITALS: Ht 152.4 cm; Wt 64.9 kg
[2019-11-26] MEDS ORDERED: ACETAMINOPHEN 325MG TABLET PO ONE (23:45)
[2019-11-26 23:55] LABS: BASOPHILS % 0.1 % (0.0-2.0); EOSINOPHILS % 2.1 % (0.0-5.0); HEMATOCRIT. 21.4 % (42.0-52.0); LYMPHOCYTES % 10.7 % (20.0-50.0); MEAN CORPUSCULAR HEMOGLOBIN 17.5 pg (28.0-32.0); MEAN CORPUSCULAR VOLUME 60.6 fL (80.0-94.0); MEAN PLATELET VOLUME 5.7 fl (7.4-10.4); MONOCYTES % 10.5 % (2.0-8.0); NEUTROPHILS % 76.6 % (40.0-76.0); PLATELET 584 x1000/uL (130-400); RED BLOOD CELL COUNT 3.52 mill/uL (4.7-6.1); RED CELL DISTRIBUTION WIDTH 21.5 % (11.6-14.6)
[2019-11-27 00:01] LABS: CHLORIDE 108 mEq/L (98-107)
[2019-11-27 00:28] LABS: HEMOGLOBIN. 6.2 g/dL (14.0-18.0)
[2019-11-27] MEDS ORDERED: PIPERACILLIN SODIUM/TAZOBACTAM 4.5 G in DEXT 5% WATER 100 ML IV SCH (00:45)
[2019-11-27 04:01] VITALS: BP 107/68
[2019-11-27 05:00] LABS: PLATELET ESTIMATE INCREASED
[2019-11-27] MEDS ORDERED: MORPHINE SULFATE 2 MG/ML CPJ (NOT FOR IM USE) IV PRN (06:15)
[2019-11-27] MEDS ORDERED: ONDANSETRON HCL 4MG/2ML INJ IV PRN (06:15)
== END 2019-11-27 08:05 | disposition left against medical advice (07) | DRG 811 ==
LOC: ER 14:42 → 6EST 11-27 00:57 → ENRESERV 11-27 01:56
PROVIDERS: ADMIT Internal Medicine; ATTEND Internal Medicine
DX: D64.9 Anemia, unspecified (principal); E43 Unspecified severe protein-calorie malnutrition; G82.20 Paraplegia, unspecified; E11.9 Type 2 diabetes mellitus without complications; Z60.2 Problems related to living alone; E87.8 Other disorders of electrolyte and fluid balance, not elsewhere classified; I10 Essential (primary) hypertension; L89.159 Pressure ulcer of sacral region, unspecified stage; Z90.49 Acquired absence of other specified parts of digestive tract; Z88.8 Allergy status to other drugs, medicaments and biological substances; Z68.27 Body mass index [BMI] 27.0-27.9, adult; M79.605 Pain in left leg; M79.604 Pain in right leg
CPT/HCPCS: 36415; 80053; 85025; 93005; 96365; 99285; J2543; J7060

== ENCOUNTER 2020-03-20 18:06 | Emergency (ER) | payer MEDICARE, MEDICAID ==
[~2020-03-20] VITALS: Ht 167.6 cm; Wt 70.0 kg
[2020-03-20 18:11] VITALS: BP 138/70
== END 2020-03-20 23:00 | disposition left against medical advice (07) ==
LOC: ER 18:06
DX: Z53.21 Procedure and treatment not carried out due to patient leaving prior to being seen by health care provider (principal)

== ENCOUNTER 2020-03-21 01:53 | Emergency (ER) | payer MEDICARE, MEDICAID ==
[~2020-03-21] VITALS: Ht 167.6 cm; Wt 70.0 kg
[2020-03-21 02:13] VITALS: BP 128/68
== END 2020-03-21 05:15 | disposition left against medical advice (07) ==
LOC: ER 01:53
DX: Z53.21 Procedure and treatment not carried out due to patient leaving prior to being seen by health care provider (principal)

== ENCOUNTER 2020-06-27 19:14 | Emergency (ER) | payer MEDICARE, MEDICAID ==
[~2020-06-27] VITALS: Ht 167.6 cm; Wt 64.0 kg
[2020-06-27 19:18] VITALS: BP 142/87
[2020-06-27] MEDS ORDERED: ACETAMINOPHEN 325MG TABLET PO STA (19:31)
== END 2020-06-28 00:04 | disposition home or self-care (01) ==
LOC: ER 19:14
DX: Z00.00 Encounter for general adult medical examination without abnormal findings (principal); E11.9 Type 2 diabetes mellitus without complications; I10 Essential (primary) hypertension; F17.200 Nicotine dependence, unspecified, uncomplicated; Z88.8 Allergy status to other drugs, medicaments and biological substances; Z89.612 Acquired absence of left leg above knee
CPT/HCPCS: 99283

== ENCOUNTER 2020-06-28 00:04 | Emergency (ER) | payer MEDICARE, MEDICAID ==
[~2020-06-28] VITALS: Ht 160 cm; Wt 50.0 kg
[2020-06-28 00:09] VITALS: BP 115/81
[2020-06-28] MEDS ORDERED: ACETAMINOPHEN 325MG TABLET PO ONE (01:45)
== END 2020-06-28 03:14 | disposition left against medical advice (07) ==
LOC: ER 00:04
DX: M54.9 Dorsalgia, unspecified (principal); G89.29 Other chronic pain; E11.9 Type 2 diabetes mellitus without complications; I10 Essential (primary) hypertension; Z88.8 Allergy status to other drugs, medicaments and biological substances; Z99.3 Dependence on wheelchair; Z89.612 Acquired absence of left leg above knee
CPT/HCPCS: 99283

== ENCOUNTER 2021-05-29 11:42 | Emergency (ER) | payer MEDICARE, MEDICAID ==
[~2021-05-29] VITALS: Ht 167.6 cm; Wt 66.0 kg
[2021-05-29 12:04] VITALS: BP 102/47
[2021-05-29] MEDS ORDERED: BACITRACIN ZINC OINT UDPKT TOP ONE (13:00)
== END 2021-05-29 13:29 | disposition home or self-care (01) ==
LOC: ER 12:04
DX: Z48.00 Encounter for change or removal of nonsurgical wound dressing (principal)
CPT/HCPCS: 99283